=== PATIENT | female | born 1960 | race Caucasian/White ===

== ENCOUNTER → 2018-06-07 | Day surgery (SDC) | payer BC ==
[~2018-06-07] MED LIST: ASPIRIN81 MG; CLINDAMYCIN 600MG / 50ML 50 ML IV ONE; DEXAMETHASONE SOD PHOS INJ 4 MG/ML VIAL ONE; FENTANYL CITRATE/PF 100MCG/2 ML INJ ONE; LIDOCAINE HCL 2% LOCAL INJ 5 ML SDV VIAL INJ ONE; METOPROLOL; MIDAZOLAM HCL 2 MG/2 ML VIAL ONE; NORCO 10-325 T1 EACH; OMEPRAZOLE40 MG; ONDANSETRON HCL INJ 2 MG/ML VIAL ONE; PHENYLEPHRINE HCL 1% 10 MG/ML VIAL ONE; PROPOFOL IV EMULSION 10 MG/ML 20 ML VIAL ONE; SERAQUIL; SEVOFLURANE INHAL SOLN 250 ML PEN BTL ONE; TRUMEQ
[2018-06-07 10:40] VITALS: BP 137/94
--- NOTE | 2018-06-07 10:59 | Operative Report ---
DATE OF PROCEDURE: PREOPERATIVE DIAGNOSIS: Cubital tunnel syndrome, right arm. POSTOPERATIVE DIAGNOSIS: Cubital tunnel syndrome, right arm. OPERATION PERFORMED: Right ulnar nerve transposition. ANESTHESIA: General. HISTORY: The patient is a 57-year-old right-hand dominant female who presents with EMG-proven cubital tunnel syndrome. The risks, benefits, and alternatives to treatment were discussed with the patient and she is prepared to undergo the procedures as outlined. DESCRIPTION OF PROCEDURE: The patient was brought to the operating theater. After the induction of adequate general inhalation anesthesia, she was prepped and draped in a supine position. A time out was performed by the entire operating room team. The procedure was begun by marking out the medial epicondyle and marking out incisions that extended proximally and distally from the medial epicondyle for a distance of 5 cm. The right upper extremity was exsanguinated, and a tourniquet was inflated to a pressure of 250 mmHg. The procedure was begun by incising through the skin and subcutaneous tissues sharply. Bleeding was controlled using the bipolar cautery. The dissection continued into the subcutaneous plane, and branches of the medial antebrachial cutaneous nerve were identified and protected and preserved as best possible. The dissection continued directly onto the medial epicondyle. At this point, the skin and subcutaneous tissues were elevated off the medial epicondyle and flexor pronator muscles mass. Posteriorly the skin and subcutaneous tissues were elevated off the medial epicondyle down to the level of the olecranon. Proximal to the cubital tunnel the medial intramuscular septum was identified at its attachment to the medial epicondyle. Just posterior to the intramuscular septum the ulnar nerve was identified proximal to its entrance in the cubital tunnel. Using the ulnar nerve as a guide, the overlying tissues were incised, taking care to protect and preserve the ulnar nerve. The dissection continued distally through the cubital tunnel, and the overlying thickened tissues were incised, once again taking care to protect and preserve the ulnar nerve throughout its course. The dissection continued distally onto the flexor pronator muscle mass. The fascia overlying the ulnar nerve was divided sharply, and the muscle fibers were then gently teased apart. The dissection continued distally until both the 1st and 2nd muscular branches off the ulnar nerve were identified. At this point, a 1/4-inch Zuleima drain was placed around the nerve and used to elevate the nerve out of its bed. The posterior attachments were released and the nerve was transposed anteriorly and subcutaneously. In order to prevent a ehsan-site of compression, the intramuscular septum was transected at the medial epicondyle and removed for a distance of several cm proximally. A subcutaneous sling was fashioned by suturing the subcutaneous fascia to the tissue around the medial epicondyle using 3-0 Vicryl in an interrupted manner. Care was taken to ensure that the nerve was not compressed or kinked during this maneuver. The elbow was placed through a range of motion verifying the adequacy of the transposition. The wound was copiously irrigated and closed as follows: 3-0 Vicryl was used to close the deep dermis in a buried interrupted fashion, and 5-0 nylon was used in an interrupted horizontal mattress fashion to approximate the skin. A Marcaine field block was performed at the operative site. The tourniquet was deflated. All the fingers pinked up nicely. A sterile bulky conforming bandage was applied from axilla to wrist. This was held in place with loosely wrapped Sebas wraps. The patient tolerated the procedure well and was brought to the recovery room in satisfactory condition. She was discharged with a postoperative instruction sheet as well as a followup appointment. Job#: [id number] KARIN
== END | disposition home or self-care (01) ==
LOC: OR 06:52
PROVIDERS: ATTEND Plastic Surgery
DX: G56.21 Lesion of ulnar nerve, right upper limb (principal); M06.9 Rheumatoid arthritis, unspecified; M54.9 Dorsalgia, unspecified; R00.0 Tachycardia, unspecified; N18.9 Chronic kidney disease, unspecified; F17.210 Nicotine dependence, cigarettes, uncomplicated; Z86.19 Personal history of other infectious and parasitic diseases; Z88.0 Allergy status to penicillin; Z88.8 Allergy status to other drugs, medicaments and biological substances; Z01.810 Encounter for preprocedural cardiovascular examination; Z79.82 Long term (current) use of aspirin
CPT/HCPCS: 64718; 93005; J1100; J2001; J2250; J2370; J2405; J2704

== ENCOUNTER 2019-05-27 13:47 | Inpatient (IN) | payer BC ==
[~2019-05-27] VITALS: Ht 152.4 cm; Wt 45.4 kg
[~2019-05-27 13:47] MED LIST changes: -CLINDAMYCIN 600MG / 50ML 50 ML IV ONE; -DEXAMETHASONE SOD PHOS INJ 4 MG/ML VIAL ONE; -FENTANYL CITRATE/PF 100MCG/2 ML INJ ONE; -LIDOCAINE HCL 2% LOCAL INJ 5 ML SDV VIAL INJ ONE; -METOPROLOL; +METOPROLOL PO; -MIDAZOLAM HCL 2 MG/2 ML VIAL ONE; -NORCO 10-325 T1 EACH; +NORCO 10-325 T1 EACH PO; -OMEPRAZOLE40 MG; +OMEPRAZOLE40 MG PO; -ONDANSETRON HCL INJ 2 MG/ML VIAL ONE; -PHENYLEPHRINE HCL 1% 10 MG/ML VIAL ONE; -PROPOFOL IV EMULSION 10 MG/ML 20 ML VIAL ONE; -SERAQUIL; +SERAQUIL PO; -SEVOFLURANE INHAL SOLN 250 ML PEN BTL ONE; -TRUMEQ; +TRUMEQ PO
--- OUTSIDE RECORDS SUMMARY | 2019-05-27 13:50 | XMS REPORT ---
Author Author [facility] Address Unknown Phone Unavailable Care Team Providers Care Prep Person Name Role Phone Unavailable Unavailable Problems This patient has no known problems. Allergies, Adverse Reactions, Alerts This patient has no known allergies or adverse reactions. Medications This patient has no known medications. Encounters Start Date/Time End Date/Time Encounter Type Admission Type Attending Clinicians Care Facility Care Department Encounter ID 2019-01-10 09:20:00 2019-01-10 09:20:00 Outpatient [id number]
[2019-05-27] MEDS ORDERED: SODIUM CHLORIDE 0.9% 1000ML 1,000 ML IV SCH (14:30)
[2019-05-27 14:38] LABS: BASOPHILS # (AUTO) 0.1 (0.0-0.1); BASOPHILS % 0.7 % (0.0-1.0); EOSINOPHILS # (AUTO) 0.1 (0.0-0.4); EOSINOPHILS % 0.8 % (0.0-6.0); HEMATOCRIT 32.8 % (34.2-44.1); HEMOGLOBIN 10.6 g/dL (12.0-16.0); LYMPHOCYTES # (AUTO) 1.3 (1.0-3.2); LYMPHOCYTES % 17.6 % (18.0-39.1); MEAN CORPUSCULAR HEMOGLOBIN 36.9 pg (28-32); MEAN CORPUSCULAR HGB CONC 32.3 g/dL (31-35); MEAN CORPUSCULAR VOLUME 114.3 fL (81-99); MONOCYTES # (AUTO) 1.2 (0.2-0.8); MONOCYTES % 15.5 % (4.4-11.3); NEUTROPHILS # (AUTO) 4.4 (2.1-6.9); NEUTROPHILS % 59.4 % (38.7-80.0); PLATELET COUNT 292 x10e3/uL (140-360); RED BLOOD COUNT 2.87 x10e6/uL (3.6-5.1); RED CELL DISTRIBUTION WIDTH 12.4 % (11.7-14.4)
[2019-05-27 15:09] LABS: ALBUMIN 2.4 g/dL (3.5-5.0); ALBUMIN/GLOBULIN RATIO 0.6 (0.8-2.0); CALCIUM 10.1 mg/dL (8.4-10.2); CREATININE, SERUM 2.57 mg/dL (0.57-1.11)
[2019-05-27 15:15] LABS: BILIRUBIN,URINE MODERATE (NEGATIVE); CLARITY,URINE CLOUDY (CLEAR); COLOR,URINE BROWN (YELLOW); KETONES,URINE TRACE (NEGATIVE); LEUKOCYTE ESTERASE ,URINE NEGATIVE (NEGATIVE); NITRITE,URINE POSITIVE (NEGATIVE); PROTEIN,URINE DIPSTICK 1+ (NEGATIVE); URINE UROBILINOGEN 1 mg/dL (0.2 - 1)
[2019-05-27] MEDS ORDERED: CEFEPIME HCL 1 GM VIAL IV SCH (15:15)
[2019-05-27] MEDS ORDERED: SODIUM CHLORIDE 0.9% 1000ML 1,000 ML IV STA (15:15)
[2019-05-27 15:18] LABS: AMPHETAMINES SCREEN,URINE NEGATIVE (NEGATIVE); BENZODIAZEPINES SCREEN,URINE POSITIVE (NEGATIVE); PHENCYCLIDINE SCREEN,URINE NEGATIVE (NEGATIVE)
[2019-05-27 15:26] LABS: AMORPHOUS SEDIMENT,URINE FEW (FEW); BACTERIA,URINE MODERATE /HPF; RBC,URINE 0-5 /HPF (0-5)
[2019-05-27] MEDS: CEFEPIME 1GM/NS 0.9% 50 ML 50 ML IV SCH (15:45)
--- NOTE | 2019-05-27 16:33 | Diagnostic Imaging Report ---
EXAMINATION: CHEST SINGLE (NOT PORTABLE) INDICATION: Abdominal pain, pelvic pain COMPARISON: CT abdomen pelvis of earlier the same day. FINDINGS: LINES/TUBES:EKG leads overlie the chest. LUNGS:The lungs are moderately inflated. No focal consolidation or pulmonary edema. PLEURA:No pleural effusion or pneumothorax. MEDIASTINUM:The cardiomediastinal silhouette appears normal in size and shape. BONES/SOFT TISSUES:No acute osseous injury. ABDOMEN:No free air under the diaphragm. IMPRESSION: No focal pneumonia or pulmonary edema. Signed by: Zakiya Jacome MD on 05/27/2019 4:30 PM
--- NOTE | 2019-05-27 17:16 | Diagnostic Imaging Report ---
EXAM: CT Abdomen and Pelvis WITHOUT intravenous contrast INDICATION: Abdominal pain, hip pain, lactic acidosis COMPARISON: None. TECHNIQUE: Abdomen and pelvis were scanned utilizing a multidetector helical scanner from the lung base to the pubic symphysis without administration of IV contrast. Coronal and sagittal reformations were obtained. IV CONTRAST: None ORAL CONTRAST: Water COMPLICATIONS: None RADIATION DOSE: Total DLP: 490.9 mGy*cm Dose modulation, iterative reconstruction, and/or weight based adjustment of the mA/kV was utilized to reduce the radiation dose to as low as reasonably achievable. FINDINGS: LOWER THORAX: Mild dependent subsegmental atelectasis. Small hiatal hernia with fluid in the distal esophagus. HEPATOBILIARY: No focal liver lesion. No biliary ductal dilation. Unremarkable gallbladder. SPLEEN: No splenomegaly. PANCREAS: No focal masses or ductal dilatation. ADRENALS: No adrenal nodules. KIDNEYS/URETERS: 6 mm right midpole renal calculus. Mild right hydronephrosis. No hydroureter. 2 mm left midpole renal calculus and 6 mm left lower pole renal calculus. No left hydronephrosis or hydroureter. Mild cortical atrophy of both kidneys. PELVIC ORGANS/BLADDER: Unremarkable. PERITONEUM / RETROPERITONEUM: No free air or fluid. LYMPH NODES: No lymphadenopathy. VESSELS: Scattered atherosclerotic calcifications of the nonaneurysmal abdominal aorta and major branches. GI TRACT: Distended fluid-filled stomach. The cecum is distended to 7.1 cm and fluid-filled. The entire colon contains large amounts of fluid and stool. Colonic diverticulosis including right-sided diverticulosis with no CT evidence of diverticulitis. No abnormal bowel wall thickening. No definite obstruction. Normal appendix. BONES AND SOFT TISSUES: There is a likely subacute or chronic nonunited mildly impacted fracture of the left femoral neck. Old healed fractures of the right and left superior and inferior pubic rami. Postoperative findings of discectomy and posterior fusion at L4-5. No suspicious lytic or blastic lesions. IMPRESSION: Extensively fluid-filled bowel with cecal distention to 7.1 cm and large amounts of fluid and stool within the colon as well as fluid distention of the stomach. Diverticulosis including right-sided diverticulosis with no CT evidence of diverticulitis. Bilateral renal calculi up to 6 mm. Mild right hydronephrosis. No left hydronephrosis. Mild cortical atrophy of both kidneys suggesting chronicity. Subacute or chronic nonunited mildly impacted fracture of the left femoral neck. Old healed fractures of right and left superior and inferior pubic rami. Signed by: Zakiya Jacome MD on 05/27/2019 5:13 PM
[2019-05-27] MEDS ORDERED: MORPHINE SULFATE 2 MG/ML SYR 1ML IV PRN (18:15)
--- NOTE | 2019-05-27 19:00 | NUR ---
Report to GARCÍA Cervantes
--- NOTE | 2019-05-27 19:05 | NUR ---
Pt put on a bed espinoza to try to urinate.
--- NOTE | 2019-05-27 19:15 | NUR ---
Pt taken off of bedpan and at bedside and discussing plan of care with pt and .
--- NOTE | 2019-05-27 20:00 | NUR ---
Report to GARCÍA Claudio
--- NOTE | 2019-05-27 20:53 | Diagnostic Imaging Report ---
TECHNIQUE: Computed tomography imaging of the LEFT HIP was performed WITHOUT injected contrast. Dose modulation, iterative reconstruction, and/or weight based adjustment of the mA/kV was utilized to reduce the radiation dose to as low as reasonably achievable. HISTORY: Left hip pain, fracture COMPARISON: None available. FINDINGS: Subacute transverse fracture of the femoral neck with displacement. Early callus formation without osseous bridging. Mild degenerative arthrosis of the left hip. Remote healed pubic rami fractures. Refer to CT abdomen and pelvis report for the pelvic findings. IMPRESSION: Subacute displaced left femoral neck fracture with developing callus formation. Signed by: Dr. Fernando Gallo M.D. on 05/27/2019 8:50 PM
--- NOTE | 2019-05-27 20:58 | NUR ---
ORTHOPEDICS CONSULTATION Patient is a 58 yo community ambulator who presents to the ED for an inablity to ambulate after a fall 6 days ago with left hip pain. Denies numbness, paresthesias or loss of distal motor function. No pain in any other extremity. Denies any previous hip pain prior. PMdHx: HIV, Hep C Allergies: Penicillin, Ibuprofen SurgHx: 7 Spine Surgeries, most recently this summer by Dr. Dionicio Bonilla FamHx: Non-contributory Occ: Unemployed SocHx: Non-contdributory AVSS Left Leg: Shortened, Flexed, Externally Rotated Motor: + EHL, FHL, TA, G/S Sensation grossly intact Pulses + DP, Post tib Compartments soft Negative calf tenderness Left Hip CT demonstrates left displaced femoral neck fracture 58 yo F with Left displaced femoral neck fracture Plan for left hip hemiarthroplasty when medically cleared Plan for OR on 05/28/19 Follow up consent, labs NPO except meds after midnight IVF while NPO DVT Prophlaxis Discontinue DVT Chemoprophylaxis after midnight DO [facility]
[2019-05-27 21:33] LABS: BAND NEUTROPHILS % (MANUAL) 12 %; LYMPHOCYTES % (MANUAL) 18 % (19-48); METAMYELOCYTES % (MANUAL) 3 % (0-0); MONOCYTES % (MANUAL) 14 % (3.4-9.0); MYELOCYTES % (MANUAL) 2 % (0-0); NEUTROPHILS % (MANUAL) 48 % (40-74)
[2019-05-27] MEDS: MORPHINE SULFATE INJ 4 MG/ML INJ 1ML IV PRN (21:35)
[2019-05-27 21:36] LABS: HOWELL-JOLLY BODIES FEW
--- NOTE | 2019-05-27 21:36 | NUR ---
PT TRANSFERRED TO FLOOR VIA ST BY ACCEPTING NURSE ON TELE.
[2019-05-27 21:37] LABS: ANISOCYTOSIS SLIGHT; HYPOCHROMASIA SLIGHT; PLATELET ESTIMATE ADEQUATE; PLATELET MORPHOLOGY COMMENT NORMAL; RBC MORPHOLOGY COMMENT NORMAL
--- NOTE | 2019-05-27 21:44 | Diagnostic Imaging Report ---
Left hip with pelvis 3 - views HISTORY: Pain status post fall. COMPARISON: None. FINDINGS: Examination available for interpretation at 9:30 PM . There is a comminuted displaced impaction fracture of the left femoral neck with mild displacement of the distal fracture fragment. Deformity of the bilateral inferior pubic rami right greater than left may be related to prior traumatic injury. Partially visualized lower lumbar fusion hardware. Battery pack projected on the left hemipelvis laterally. Phleboliths within the pelvis. IMPRESSION: Displaced fracture of the left femoral neck. Signed by: Dr. Bacilio Horne M.D. on 05/27/2019 9:41 PM
--- NOTE | 2019-05-27 21:45 | NUR ---
TRANSPORTED PATIENT TO ROOM 292 VIA STRETCHER. TELEMETRY IN USE. PATIENT IS STILL TACHYCARDIC BUT ASYMPTOMATIC. PATIENT HAS HISTORY OF TACHYCARDIA. MD IS AWARE PER ER NURSE REPORT. PATIENT TRANSFERRED TO BED. O2 AT 2L/MIN. CALL LIGHT WITHIN REACHED.
[2019-05-27 22:00] VITALS: BP 104/63
[2019-05-27] MEDS: ONDANSETRON HCL INJ 2MG/ML 2ML 2 MG/ML VIAL IV PRN (22:10)
[2019-05-27 23:00] VITALS: BP 104/63
[2019-05-28] VITALS (16 sets, daily range): BP systolic 87–140; BP diastolic 58–88
--- NOTE | 2019-05-28 00:30 | NUR ---
UNABLE TO GET ENOUGH AMOUNT OF BLOOD SAMPLE FOR LABS. PATIENT IS A HARD STICK.
[2019-05-28] MEDS ORDERED: HYDROXYZINE HCL25 MG PO (02:02)
[2019-05-28] MEDS: MORPHINE SULFATE INJ 4 MG/ML INJ 1ML IV PRN ×2 (04:59→14:17)
[2019-05-28] MEDS: CEFEPIME 1GM/NS 0.9% 50 ML 50 ML IV SCH ×2 (04:59→18:28)
[2019-05-28] MEDS: ONDANSETRON HCL INJ 2MG/ML 2ML 2 MG/ML VIAL IV PRN ×4 (05:00→23:46)
[2019-05-28 05:54] LABS: BASOPHILS % 0.7 % (0.0-1.0); EOSINOPHILS # (AUTO) 0.1 (0.0-0.4); EOSINOPHILS % 1.3 % (0.0-6.0); HEMOGLOBIN 7.2 g/dL (12.0-16.0); LYMPHOCYTES # (AUTO) 0.5 (1.0-3.2); LYMPHOCYTES % 9.8 % (18.0-39.1); MEAN CORPUSCULAR HEMOGLOBIN 36.4 pg (28-32); MEAN CORPUSCULAR HGB CONC 33.5 g/dL (31-35); MEAN CORPUSCULAR VOLUME 108.6 fL (81-99); MONOCYTES # (AUTO) 0.8 (0.2-0.8); MONOCYTES % 14.2 % (4.4-11.3); NEUTROPHILS % 73.1 % (38.7-80.0); PLATELET COUNT 237 x10e3/uL (140-360); RED BLOOD COUNT 1.98 x10e6/uL (3.6-5.1); RED CELL DISTRIBUTION WIDTH 12.3 % (11.7-14.4)
[2019-05-28 06:00] LABS: HEMATOCRIT 21.5 % (34.2-44.1)
[2019-05-28 06:02] LABS: INR 1.14; PROTHROMBIN TIME 15.2 seconds (11.9-14.5)
[2019-05-28 06:07] LABS: ALBUMIN 1.9 g/dL (3.5-5.0); ALBUMIN/GLOBULIN RATIO 0.6 (0.8-2.0); ANION GAP 15.5 mmol/L (8-16); CALCIUM 8.2 mg/dL (8.4-10.2); CREATININE, SERUM 1.85 mg/dL (0.57-1.11); POTASSIUM 4.5 mmol/L (3.5-5.1)
--- NOTE | 2019-05-28 06:17 | NUR ---
PAGED DR. MORENO FOR ORDERS THRU THE MANAGER TRADE. WAITING FOR RESPONSE.
--- NOTE | 2019-05-28 06:48 | NUR ---
SPOKE WITH DR. PERALTA REGARDING CRITICAL LABS NEW ORDERS RECEIVED.
[2019-05-28 06:49] LABS: BAND NEUTROPHILS % (MANUAL) 22 %; EOSINOPHILS % (MANUAL) 4 % (0-7); LYMPHOCYTES % (MANUAL) 10 % (19-48); MONOCYTES % (MANUAL) 12 % (3.4-9.0); NEUTROPHILS % (MANUAL) 51 % (40-74); PLATELET ESTIMATE ADEQUATE
[2019-05-28 06:51] LABS: PLATELET MORPHOLOGY COMMENT FEW LARGE; RBC MORPHOLOGY COMMENT ABNORMAL
--- NOTE | 2019-05-28 06:58 | NUR ---
NEW ORDER FOR 1 UNIT OF PRBC TO BE GIVEN BEFORE SURGERY. DAY SHIFT NURSE MADE AWARE OF NEW ORDERS.
--- NOTE | 2019-05-28 07:14 | NUR ---
PATIENT REPOSITIONED IN BED BY 2 STAFFS. HEAD OF BED ELEVATED, TELEMETRY BOX IN PLACE. SWELLING TO LEFT HIP, ABDOMEN ROUND AND DISTENDED. BED IN LOWER POSITION, CALL LIGHT AT REACH, BED ALARM ACTIVATED.
[2019-05-28] MEDS: DEXTROSE 5%/0.9% SOD CHL 1,000 ML IV SCH ×2 (07:18→17:48)
--- NOTE | 2019-05-28 07:18 | NUR ---
DR. MORENO MADE AWARE OF DR. PERALTA ORDERS FOR BLOOD TRANSFUSION AND IV FLUIDS. NO NEW ORDERS.
--- NOTE | 2019-05-28 11:25 | NUR ---
MD IN TO SEE PATIENT. NOTIFIED OF PATIENT VOMITING BLACK EMESIS. NEW ORDERS RECEIVED. PRN ZOFRAN GIVEN ORDERED WILL CLOSELY MONITOR.
[2019-05-28] MEDS ORDERED: SODIUM CHLORIDE 0.9% 250ML 250 ML ONE (12:11)
--- NOTE | 2019-05-28 12:29 | Diagnostic Imaging Report ---
Exam: Chest radiograph Clinical History: Preoperative clearance Comparison: May 27, 2019 Findings: The cardiomediastinal silhouette and lungs are normal. The regional skeleton and soft tissue are unremarkable. There is no evidence of pleural effusion or pneumothorax. Impression: No radiographic evidence of acute cardiopulmonary disease. Signed by: Dr. Wilfredo Guevara MD on 05/28/2019 12:25 PM
--- NOTE | 2019-05-28 12:33 | NUR ---
BLOOD TRANSFUSION STARTED ORDERED. STAYED WITH THE PATIENT FOR THE FIRST 15 MINUTES, NO ADVERSE REACTION OBSERVED. WILL CLOSELY MONITOR.
[2019-05-28] MEDS ORDERED: METOPROLOL TARTRATE INJ 1 MG/ML VIAL IV PRN (15:00)
--- NOTE | 2019-05-28 15:00 | NUR ---
BLOOD TRANSFUSION COMPLETED, NO ADVERSE REACTION NOTED. LARGE BRUISE NOTED AT THE IV SITE. PATIENT DENIED PAIN ON PALPATION. REMAINS IN BED WITH HEAD OF BED ELEVATED. CALL LIGHT AT REACH.
[2019-05-28] MEDS ORDERED: PROTONIX 200MG/SODIUM CHLORIDE 0.9% 250 ML BAG IV SCH (15:15)
[2019-05-28] MEDS ORDERED: MINERAL OIL 132 ML BTL PR NR (15:15)
--- NOTE | 2019-05-28 15:25 | NUR ---
Visit made by the Spiritual Care Department Pastoral Visitor, Philomena Crowe. PV provided pastoral presence, hospitality, and supportive listening. Pastoral Visitor informed pt/family of the scope of Construction Project Engineer Services and availability. ERENDIRA KRAMER Java Developer Architect Spiritual Care Department O: [phone] Pager: [phone] ([phone] number calling from)
--- NOTE | 2019-05-28 16:15 | NUR ---
PATIENT TRANSFERRED TO ICU ORDERED. REPORT GIVEN TO RECEIVING NURSE. ALL PERSONAL ITEMS TAKEN WITH PATIENT.
--- NOTE | 2019-05-28 16:23 | NUR ---
RECEIVED PT, PT NOTED WITH LARGE HEMATOMA TO L SIDE NECK BY EJ LINE AREA IS SWOLLEN, TENDER AND PURPLE/RED INCREASING IN SIZE.WILL NOTIFY Addendum: 05/28/19 at 1629 by Nisreen Rubin RN ICE PACK PLACED OVER AREA, ASHLY PERSAUD
--- NOTE | 2019-05-28 16:40 | NUR ---
PAGED AT THIS TIME NOTIFIED OF NEW CONSULT
[2019-05-28] MEDS: PANTOPRAZOL 40MG/SOD CHL 0.9% 50 ML IV SCH ×2 (17:48→20:46)
--- NOTE | 2019-05-28 17:57 | Diagnostic Imaging Report ---
EXAMINATION: CT scan of the chest without contrast. TECHNIQUE: Helical CT images of the chest were performed from the lung apices to the level of the adrenal glands. No intravenous contrast was administered Coronal and sagittal reformatted images were obtained.Dose modulation, iterative reconstruction, and/or weight based adjustment of the mA/kV was utilized to reduce the radiation dose to as low as reasonably achievable. COMPARISON: None. CLINICAL HISTORY:Hematoma DISCUSSION: ABSENCE OF INTRAVENOUS CONTRAST DECREASES SENSITIVITY FOR DETECTION OF FOCAL LESIONS AND VASCULAR PATHOLOGY. LINES/TUBES: None. LUNGS AND AIRWAYS: The lungs are clear. No pulmonary nodules, masses or consolidation. Mild atelectasis. PLEURA: Small pleural effusions. HEART AND MEDIASTINUM: The thyroid gland is normal. The heart and pericardium are within normal limits. LYMPH NODES: There is no mediastinal, hilar or axillary lymphadenopathy. ABDOMEN: Limited contrast-enhanced views of the upper abdomen show no abnormality within the visualized liver, spleen, pancreas, or kidneys. The adrenal glands are normal. BONES AND SOFT TISSUES: Soft tissue stranding with foci of gas left supraclavicular and lower cervical region. IMPRESSION: Soft tissue stranding/hemorrhage and foci of gas in the left supraclavicular and lower cervical region. Signed by: Dr. Fernando Gallo M.D. on 05/28/2019 5:53 PM
--- NOTE | 2019-05-28 18:10 | NUR ---
ROUNDALONDRA NO SURGICAL INTERVENTION AT THIS TIME UNTIL PATIENT IS SURGICALLY CLEAR
--- NOTE | 2019-05-28 18:11 | NUR ---
ORTHOPEDIC PROGRESS NOTE Patient seen & examined, complaining of left hip pain. Patient in ICU due to blood in vomit and urine and also anemia. VS 97 HR 137 RR 22 BP 102/61 O2 93% Left Leg - Shortened Flexed Externally Rotated Motor: EHL, FHL, TA, G/S Sensation grossly intact Pulses + DP, Post tib Compartments soft Negative calf tenderness 58 yo F with left displaced femoral neck fracture Plan for left hip wolf when medically cleared Analgesics Bedrest DVT Prophylaxis DO [facility]
--- NOTE | 2019-05-28 19:01 | NUR ---
PAGED REGARDING HGB OF 6.5 WAITING CALL BACK
--- NOTE | 2019-05-28 19:20 | NUR ---
Dr. Park returned page, ordered to give 2 units PRBCs and recheck CBC in am.
[2019-05-28] MEDS ORDERED: SODIUM CHLORIDE 0.9% 250ML 250 ML IV NR (19:30)
[2019-05-28] MEDS: HYDROMORPHONE 1MG/1ML INJ IV PRN ×2 (20:08→23:45)
--- NOTE | 2019-05-28 21:58 | History and Physical ---
HISTORY OF PRESENT ILLNESS: The patient is a 58-year-old female with past medical history positive for kidney stone, chronic renal insufficiency, history of gastric ulcers; came to the hospital complaining of . Apparently, she fell on Monday night and sought an emergency medical attention until yesterday. She was found to have a hip fracture. She also was vomiting coffee-grounds emesis. She was found to have anemia. She received blood transfusion. The patient going to be transferred to the intensive care unit due to acute anemia. REVIEW OF SYSTEMS: CARDIOVASCULAR: No chest pain or palpitation. RESPIRATORY: No shortness of breath. No cough. GASTROINTESTINAL: Nausea and vomiting of coffee-ground. She complained of constipation. No blood in the stool. No black stools. She also complains of epigastric pain. GENITOURINARY: No frequency or dysuria. ALLERGIES: SHE IS ALLERGIC TO PENICILLIN, IBUPROFEN. SOCIAL HISTORY: She claims that she smokes. FAMILY HISTORY: Negative. PHYSICAL EXAMINATION: HEART: Showed regular rhythm. Normal S1, S2 sound. LUNGS: Clear bilaterally. ABDOMEN: Soft. Had epigastric tenderness. EXTREMITIES: Show no evidence of cyanosis, edema, or trauma. LABORATORY DATA: On the CBC; we have a white blood count of 7.48, hemoglobin 10.6, hematocrit 32.8, and platelet count 282,000. Prior hemoglobin was 7.2, so it came up from 7.2 to 10.6. On the BMP; we have a sodium 131, potassium 4.5, chloride 106, CO2 of 14, anion gap 15.5, BUN 97, creatinine 1.85, and GFR is 28, glucose is 138. Lactic acid was 69.2, now is normal at 8.5. Calcium 8.2, total bilirubin 0.4, AST 19, ALT 13, alkaline phosphatase 475, ammonia 47, creatine kinase is 411, CK-MB 4. Troponin 0.019. Total protein 5.1. Albumin 1.9, albumin and globulin ratio is 0.6, globulin is 3.2. Stool guaiac has been done. Also, urinalysis came back positive for opiates, evidence of a benzodiazepine. Urinalysis came back negative for leukocytes, negative for red blood cells. On the chest x-ray, there is no evidence of any acute cardiopulmonary disease. We have a CT of the hip, which shows acute displacement of left femur and hip fracture with developing callus formation. She also had a CT of the abdomen, which show extensive fluid-filled bowel with and large amount of fluid and stool within the colon as well as fluid distention of the stomach. Diverticulosis includes right-sided diverticulosis with no CT evidence of diverticulitis. Bilateral renal calculi up to 6 mm. Mild right hydronephrosis. No left hydronephrosis. Mild cortical atrophy mildly impacted fracture of the left femoral neck. All healed fractures on the right and left superior and inferior pubic rami. IMPRESSION: 1. Acute gastrointestinal bleed, secondary to most likely gastric ulcers . 2. Acute anemia, secondary to gastric bleed. 3. . 4. Fecal impaction. 5. Szqmy-mp-lqbzjfl renal failure, stage 3 to 4. 6. Constipation. 7. Bilateral kidney stones. 8. Right hydronephrosis. PLAN OF TREATMENT: The patient continue units of blood transfusion. Hemoglobin is up to 10.2. Continue cefepime 1 g IV twice a day. Continue D5 normal saline at 80 mL an hour. Continue Dilaudid 1 mg IV q.3 hours as needed, Zofran 4 mg IV q.4 hours as needed. Gastroenterology consult with Dr. Niko Moreno has been requested. Protonix 40 mg IV twice a day has been ordered. Also, the patient going to be transferred to intensive care unit. We are going to check H and H q.6 hours to keep eye on the hemoglobin and hematocrit daily for couple of days. We are going to hold on the surgery due to active GI bleed. Fleet Enema is going to be ordered also. Orthopedic surgical consult with Dr. Hernadez has been requested, we are going to hold on the surgery more stable condition. Dr. Niko Moreno will see her from the Gastroenterology point of view also. I talked with the family, the patient, and nurse. Labs have been reviewed. Consult report have been reviewed. Time spent around 45 to 50 minutes. The patient going to be transferred to intensive care unit. MD MERLYN Alvarado /[id number]
[2019-05-28] MEDS ORDERED: BISACODYL 10 MG SUPP PR ONE (23:30)
[2019-05-29] VITALS (21 sets, daily range): BP systolic 91–138; BP diastolic 47–78
[2019-05-29] MEDS: PANTOPRAZOL 40MG/SOD CHL 0.9% 50 ML IV SCH ×5 (01:30→21:28)
[2019-05-29] MEDS: CEFEPIME 1GM/NS 0.9% 50 ML 50 ML IV SCH ×2 (03:54→17:16)
[2019-05-29] MEDS: MORPHINE SULFATE INJ 4 MG/ML INJ 1ML IV PRN (03:55)
[2019-05-29] MEDS: ONDANSETRON HCL INJ 2MG/ML 2ML 2 MG/ML VIAL IV PRN ×5 (03:55→21:28)
[2019-05-29] MEDS: DEXTROSE 5%/0.9% SOD CHL 1,000 ML IV SCH ×2 (04:17→20:30)
[2019-05-29 05:01] LABS: BASOPHILS % 0.7 % (0.0-1.0); EOSINOPHILS # (AUTO) 0.1 (0.0-0.4); EOSINOPHILS % 2.2 % (0.0-6.0); HEMATOCRIT 23.9 % (34.2-44.1); HEMOGLOBIN 8.1 g/dL (12.0-16.0); LYMPHOCYTES # (AUTO) 0.5 (1.0-3.2); LYMPHOCYTES % 8.1 % (18.0-39.1); MEAN CORPUSCULAR HEMOGLOBIN 32.7 pg (28-32); MEAN CORPUSCULAR HGB CONC 33.9 g/dL (31-35); MEAN CORPUSCULAR VOLUME 96.4 fL (81-99); MONOCYTES # (AUTO) 0.7 (0.2-0.8); MONOCYTES % 12.5 % (4.4-11.3); NEUTROPHILS # (AUTO) 4.4 (2.1-6.9); NEUTROPHILS % 75.3 % (38.7-80.0); PLATELET COUNT 166 x10e3/uL (140-360); RED BLOOD COUNT 2.48 x10e6/uL (3.6-5.1); RED CELL DISTRIBUTION WIDTH 17.9 % (11.7-14.4)
[2019-05-29 05:45] LABS: FERRITIN 171.52 ng/mL (4.63-204.00)
[2019-05-29 06:19] LABS: FOLATE 6.2 ng/mL (7.0-15.4)
[2019-05-29] MEDS: HYDROMORPHONE 1MG/1ML INJ IV PRN ×4 (07:35→21:28)
[2019-05-29] MEDS ORDERED: ONDANSETRON HCL INJ 2MG/ML 2ML 2 MG/ML VIAL ONE (14:22)
--- NOTE | 2019-05-29 14:55 | NUR ---
ORTHOPEDIC PROGRESS NOTE Patient seen & examined complaining of pain in left hip. T 97.2 Hr 115 RR 18 BP 112/76 O2 99% RA Left Leg - shortened, flexed, externally rotated Motor: + EHL, FHL, TA, G/S Sensation grossly intact Pulse + DP, Post tib Compartments soft Negative calf tenderness H/H 8.1/23.9 58 yo F with left femoral neck fracture Plan for OR tomorrow if medically optimized Analgesics PRN DVT Prophylaxis Bedrest NPO except meds after midnight IVF while NPO DO [facility]
[2019-05-29] MEDS ORDERED: MIDAZOLAM HCL 2 MG/2 ML VIAL ONE (14:56)
--- NOTE | 2019-05-29 17:29 | Progress Note ---
DATE: Internal Medicine Progress Note SUBJECTIVE: The patient is doing better. She is status post EGD. There was no evidence of any active bleeding, but there was evidence of hiatal hernia, gastritis, esophagitis, and some duodenal ulcers also. The patient is complaining of nausea. OBJECTIVE: VITAL SIGNS: Blood pressure 94/50, heart rate 121 per minute, respiratory rate 12 per minute, and oxygen saturation 99%. HEART: Showed regular rhythm. Normal S1, S2 sound. LUNGS: Clear bilaterally. ABDOMEN: Soft, nontender. No distention. No visceromegaly. LABORATORY DATA: On the BMP; sodium 131, potassium 4.5, chloride 106, CO2 14, BUN 97, creatinine 1.85, glucose 138. On the CBC; white blood count 5.90, hemoglobin 8.1, hematocrit 23.9, platelet count of 163,000. PT 15.2, INR 1.14, PTT 39.0. AST 19, ALT 13, total bilirubin 0.4, alkaline phosphatase 475. FINAL IMPRESSION: 1. Gastric bleeding. 2. Arthritis. 3. Duodenal ulcer. 4. Hiatal hernia. 5. Esophagitis. 6. Left hip fracture. 7. Acute anemia secondary to gastric bleed. 8. Tmvmi-zh-acurdey renal failure, stage 3 to 4. 9. Bilateral kidney stones. 10. Right hydronephrosis. 11. Constipation. PLAN OF TREATMENT: 1. Continue cefepime 1 g IV twice a day. 2. Protonix drip. 3. D50 IV push. 4. D5 half-normal saline at 80 mL an hour. 5. Dilaudid 1 mg IV q.3 hours as needed. 6. Zofran 4 mg IV q.4 hours as needed. 7. Metoprolol 5 mg IV q.6 hours for tachycardia. We are going to repeat a BMP tomorrow, CBC tomorrow. We are going to consult Dr. Bates for acute renal failure. The patient is going to have a hip fracture repair tomorrow. MD RALPH Alvarado/TANA /[id number]
[2019-05-29] MEDS ORDERED: LIDOCAINE HCL 2% LOCAL INJ 5 ML SDV VIAL INJ ONE (18:15)
[2019-05-29] MEDS ORDERED: PROPOFOL IV EMULSION 10 MG/ML 50 ML VIAL ONE (18:15)
--- NOTE | 2019-05-29 20:20 | Operative Report ---
DATE OF PROCEDURE: 05/29/2019 SURGEON: Niko Moreno MD PROCEDURE PERFORMED: EGD with biopsies and esophageal brushings. INDICATIONS FOR EGD: Anemia, history of hematemesis. MEDICATIONS: The patient was done under MAC, please see anesthesiologist's note. PROCEDURE IN DETAIL: With the patient in the supine position, a flexible fiberoptic Olympus gastroscope was introduced into the esophagus under direct visualization without any difficulty. Mucosa overlying the esophagus was covered with black exudate throughout and it was brushed and brushings were sent for Pooja as well as cytology. The scope was then advanced with ease traversing a small hiatal hernia. Mucosa overlying the antrum and the body revealed some patchy erythema and [id number] edema and biopsies were obtained and sent to stain for H pylori. A large amount of dark liquid and possibly some solid debris was noted in the fundus of the stomach, which precluded visualization of that segment. The pylorus was of normal contour and shape, was intubated with ease and the scope was advanced all the way to the second portion of the duodenum. The scope was then withdrawn slowly. Mucosa overlying the proximal second portion appeared to be within normal limits. Two large ulcers were noted in the duodenal bulb with a heaped up margins, but without active bleeding or stigmata of recent hemorrhage. Biopsies were obtained. The scope was then withdrawn back into the stomach, it was subsequently withdrawn. The patient tolerated the procedure well. IMPRESSION: 1. Esophageal mucosa covered with black thick exudate, brushed to check for Pooja and for cytology. 2. Hiatal hernia. 3. Gastritis, biopsied. Biopsies sent to stain for H pylori. 4. Large duodenal ulcers, bulb without active bleeding or stigmata of recent hemorrhage. The patient ulcers had heaped up margins. Biopsies were obtained. PLAN: Follow up histology. Continue current therapy. Initiate full liquid diet. Niko Moreno MD [facility] /[id number] cc: MD Selvin Poole MD
[2019-05-30] VITALS (7 sets, daily range): BP systolic 123–158; BP diastolic 75–89
--- NOTE | 2019-05-30 00:06 | Consultation ---
DATE OF CONSULTATION: REASON FOR CONSULTATION: Acute kidney injury. HISTORY OF PRESENT ILLNESS: The patient is a 58-year-old female with past medical history of peptic ulcer disease, nephrolithiasis, HIV, and hepatitis C, being followed by Dr. Dao as an outpatient. Came to the hospital after a fall and found to have a left hip fracture. The patient also has been having vomiting coffee-grounds emesis. She was found to have anemia with hemoglobin of 6.5. She was transferred to ICU. She has been seen by GI and had an EGD done that showed nonbleeding esophageal ulcer. The patient had PRBC transfusion and hemoglobin today is 8.1. The patient was found to be in acute kidney injury with creatinine of 2.57. This morning, it came down to 1.85. The patient is currently on IV fluids. No vomiting today. Per patient, she was diagnosed with acute kidney injury 15 years ago and was on dialysis for three months. She does not follow up with any kidney doctor as an outpatient. Her HIV/hepatitis-C doctor keeps a track of her kidney function and her creatinine is usually at 1.0 to 1.03 per patient. PAST MEDICAL HISTORY: As above. PAST SURGICAL HISTORY: None. ALLERGIES: PENICILLIN AND IBUPROFEN. SOCIAL HISTORY: Positive for smoking. No alcohol or intravenous drug abuse. FAMILY HISTORY: No history of any kidney disease. REVIEW OF SYSTEMS: GENERAL: No fatigue, no fever, no chills. HEENT: No headache or blurry vision. NECK: No dysphagia. CARDIOVASCULAR: No chest pain, no PND, no orthopnea. RESPIRATORY: No shortness of breath or dyspnea on exertion. No cough, no hemoptysis. GI: Had vomiting. No abdominal pain. No hematemesis. No melena. MUSCULOSKELETAL: No ankle swelling, but complains of left hip pain. GENITOURINARY: No urinary urgency, frequency, or hesitancy. SKIN: No new rash. PHYSICAL EXAMINATION: VITAL SIGNS: Blood pressure 112/76, pulse of 115, temperature 97.2, respiratory rate of 18, and 99% on room air. GENERAL: The patient is awake and alert, not in apparent distress. HEENT: PERRLA. Extraocular muscles are intact. NECK: No JVD. HEART: S1 and S2. Tachycardic. LUNGS: Clear to auscultate bilaterally. No added sounds. ABDOMEN: Soft. Bowel sounds positive. EXTREMITIES: No cyanosis, clubbing, or edema. NEUROLOGIC: No focal deficit. MEDICATIONS: Dilaudid 1 mg q.3 hours, pantoprazole, Zofran, cefepime 1 g twice a day, metoprolol p.r.n., and morphine p.r.n. LABORATORY DATA: Sodium 131, potassium 4.5, chloride 106, CO2 of 14, BUN 97, creatinine 1.85, and glucose 138. White count 5.9, hemoglobin 8.1, and platelet count is 166. INR 1.14. Blood culture is negative. CT abdomen and pelvis showed cecal distention, diverticulosis, bilateral renal calculi and mild right hydronephrosis, mild cortical atrophy of both kidneys, suggestive of chronicity, subacute or chronic fracture of the left femoral neck. CT of the chest done today soft tissue stranding, hemorrhage and foci of gas in the left supraclavicular and lower cervical area. Chest x-ray, no radiographic evidence of acute cardiopulmonary process. CT of the hip, subacute displaced left femoral neck fracture with developing callus formation. ASSESSMENT AND PLAN: 1. Acute kidney injury, likely secondary to prerenal insufficiency from GI bleed/anemia and vomiting, improving. Repeat lab in the morning. Avoid all nephrotoxic medications. 2. Anemia, GI bleed, status post EGD and PRBC. Hemoglobin is stable. 3. Left hip fracture, surgery tomorrow. 4. Nephrolithiasis. No acute intervention at this point. The patient to follow up with Urology as an outpatient. 5. Hepatitis-C, HIV. She will follow up as an outpatient. Discussed with the at bedside. I want to thank Dr. Park for the consult. Deja Chao MD AFS/MODL /[id number]
[2019-05-30] MEDS: ONDANSETRON HCL INJ 2MG/ML 2ML 2 MG/ML VIAL IV PRN ×4 (01:00→19:04)
[2019-05-30] MEDS: HYDROMORPHONE 1MG/1ML INJ IV PRN ×5 (01:00→19:04)
[2019-05-30] MEDS: PANTOPRAZOL 40MG/SOD CHL 0.9% 50 ML IV SCH ×4 (02:12→19:04)
[2019-05-30] MEDS: CEFEPIME 1GM/NS 0.9% 50 ML 50 ML IV SCH ×2 (03:15→15:46)
[2019-05-30 05:32] LABS: BASOPHILS # (AUTO) 0.1 (0.0-0.1); BASOPHILS % 1.1 % (0.0-1.0); EOSINOPHILS # (AUTO) 0.1 (0.0-0.4); EOSINOPHILS % 1.2 % (0.0-6.0); HEMATOCRIT 24.3 % (34.2-44.1); HEMOGLOBIN 8.3 g/dL (12.0-16.0); LYMPHOCYTES # (AUTO) 0.5 (1.0-3.2); LYMPHOCYTES % 8.1 % (18.0-39.1); MEAN CORPUSCULAR HEMOGLOBIN 33.3 pg (28-32); MEAN CORPUSCULAR HGB CONC 34.2 g/dL (31-35); MEAN CORPUSCULAR VOLUME 97.6 fL (81-99); MONOCYTES # (AUTO) 1.1 (0.2-0.8); MONOCYTES % 17.1 % (4.4-11.3); NEUTROPHILS # (AUTO) 4.6 (2.1-6.9); NEUTROPHILS % 70.4 % (38.7-80.0); PLATELET COUNT 149 x10e3/uL (140-360); RED BLOOD COUNT 2.49 x10e6/uL (3.6-5.1); RED CELL DISTRIBUTION WIDTH 20.3 % (11.7-14.4)
[2019-05-30 05:44] LABS: INR 1.1; PROTHROMBIN TIME 14.7 seconds (11.9-14.5)
[2019-05-30 05:45] LABS: PARTIAL THROMBOPLASTIN TIME 39.2 seconds (23.8-35.5)
[2019-05-30 06:12] LABS: ANION GAP 12.4 mmol/L (8-16); CALCIUM 8.5 mg/dL (8.4-10.2); CREATININE, SERUM 1.05 mg/dL (0.57-1.11)
[2019-05-30 06:15] LABS: POTASSIUM 3.4 mmol/L (3.5-5.1)
[2019-05-30] MEDS: DEXTROSE 5%/0.9% SOD CHL 1,000 ML IV SCH ×2 (09:00→22:37)
[2019-05-30] MEDS ORDERED: TRANEXAMIC ACID 1,000 MG/10 ML ML ONE (09:26)
[2019-05-30] MEDS ORDERED: BACITRACIN 50,000 UNIT VIAL ONE (09:26)
[2019-05-30] MEDS ORDERED: VANCOMYCIN HCL 500 MG ONE (09:26)
[2019-05-30] MEDS ORDERED: POTASSIUM CHLORIDE 20MEQ/100ML 100 ML IV ONE ×2 (09:30→14:00)
--- NOTE | 2019-05-30 09:37 | NUR ---
PT STABLE. LEAVING UNIT FOR PROCEDURE
[2019-05-30] MEDS ORDERED: ROPIVACAINE 246.25 MG, EPINEPHRINE HCL 1:1000 1ML 0.5 MG, CLONIDINE HCL 0.08 MG, KETORO... INJ ONE ×5 (10:00)
[2019-05-30] MEDS ORDERED: CLINDAMYCIN PHOS 900MG/ 50ML 50 ML IV ONE (10:02)
--- NOTE | 2019-05-30 11:23 | Progress Note ---
DATE: Internal Medicine Progress Note SUBJECTIVE: The patient is going for surgery today. She is demanding pain medication around the clock. She already has her morphine recently. She is going for hip surgery today. PHYSICAL EXAMINATION: VITAL SIGNS: Blood pressure 140/79, temperature 99 degrees, heart rate 120 per minute, respiratory rate 18 per minute, and O2 saturation 98%. HEART: Show regular rhythm. Normal S1 and S2 sound. LUNGS: Clear bilaterally. ABDOMEN: Soft. LABORATORY DATA: On the BMP; sodium 140, potassium 3.4, chloride 116, CO2 of 15, BUN 35, creatinine 1.06, and glucose 122. On CBC; white blood count 6.56, hemoglobin 8.3, hematocrit 24.3, and platelet count 149,000. PT 14.7, INR 1.10, and PTT 39.2. AST 19, ALT 13, total bilirubin 0.4, and alkaline phosphatase 475. IMPRESSION: 1. Gastric bleed. 2. Acute renal failure, which is slowly resolving. 3. Left hip fracture. 4. Chronic pain syndrome. 5. Acute anemia secondary to upper gastrointestinal bleed. 6. Hypokalemia. PLAN OF TREATMENT: Continue with Protonix drip. Potassium is going to be replaced. We are going to recheck potassium and magnesium level. Continue metoprolol 5 mg IV every 6 hours as needed and morphine 4 mg IV every 4 hours as needed. She is going for hip surgery today and we are going to continue monitoring hemoglobin and hematocrit and potassium levels. MD RALPH Alvarado/TANA /[id number]
[2019-05-30] MEDS ORDERED: SUGAMMADEX SODIUM 200 MG/2 ML VIAL IV ONE (11:25)
--- NOTE | 2019-05-30 12:00 | NUR ---
discussed in rounds, pt is going for surgery today. will need physical therapy eval after to determine appropriate level of care
[2019-05-30] MEDS ORDERED: MEPERIDINE HCL INJ 25 MG/ML VIAL ONE (12:04)
[2019-05-30] MEDS ORDERED: MORPHINE SULFATE INJ 4 MG/ML INJ 1ML ONE (12:13)
[2019-05-30] MEDS: CLINDAMYCIN PHOS 900MG/ 50ML 50 ML IV SCH ×2 (14:32→22:54)
[2019-05-30] MEDS ORDERED: FENTANYL CITRATE/PF 100MCG/2 ML INJ ONE (15:00)
[2019-05-30] MEDS ORDERED: MIDAZOLAM HCL 2 MG/2 ML VIAL ONE (15:00)
[2019-05-30 16:20] LABS: BASOPHILS # (AUTO) 0.1 (0.0-0.1); EOSINOPHILS % 0.4 % (0.0-6.0); HEMATOCRIT 26.3 % (34.2-44.1); HEMOGLOBIN 8.7 g/dL (12.0-16.0); LYMPHOCYTES # (AUTO) 0.8 (1.0-3.2); LYMPHOCYTES % 10.5 % (18.0-39.1); MEAN CORPUSCULAR HEMOGLOBIN 33.6 pg (28-32); MEAN CORPUSCULAR HGB CONC 33.1 g/dL (31-35); MEAN CORPUSCULAR VOLUME 101.5 fL (81-99); MONOCYTES # (AUTO) 1.3 (0.2-0.8); MONOCYTES % 16.5 % (4.4-11.3); NEUTROPHILS # (AUTO) 5.3 (2.1-6.9); NEUTROPHILS % 69.3 % (38.7-80.0); PLATELET COUNT 135 x10e3/uL (140-360); RED BLOOD COUNT 2.59 x10e6/uL (3.6-5.1); RED CELL DISTRIBUTION WIDTH 21.3 % (11.7-14.4)
[2019-05-30 16:34] LABS: ANION GAP 11.7 mmol/L (8-16); CALCIUM 8.1 mg/dL (8.4-10.2); CREATININE, SERUM 1.03 mg/dL (0.57-1.11); POTASSIUM 3.7 mmol/L (3.5-5.1)
[2019-05-30] MEDS ORDERED: ROCURONIUM BROMIDE 10 MG/ML 5ML VIAL ONE (18:17)
[2019-05-30] MEDS ORDERED: ONDANSETRON HCL INJ 2MG/ML 2ML 2 MG/ML VIAL ONE (18:17)
[2019-05-30] MEDS ORDERED: PROPOFOL IV EMULSION 10 MG/ML 20 ML VIAL ONE (18:17)
[2019-05-30] MEDS ORDERED: SEVOFLURANE INHAL SOLN 250 ML PEN BTL ONE (18:17)
[2019-05-30] MEDS ORDERED: PHENYLEPHRINE HCL 1% 10 MG/ML VIAL ONE (18:17)
[2019-05-30] MEDS ORDERED: LIDOCAINE HCL 2% LOCAL INJ 5 ML SDV VIAL INJ ONE (18:17)
--- NOTE | 2019-05-30 19:08 | Diagnostic Imaging Report ---
Single frontal radiograph of the left hip HISTORY: Pain COMPARISON: None available. FINDINGS: Bones: No acute displaced fracture. Osseous alignment is within normal limits. Joints: Scattered degenerative change. Left hip replacement with associated postsurgical change. Soft tissues: The soft tissues appear unremarkable. IMPRESSION: Scattered degenerative change. Left hip replacement with associated postsurgical change. Signed by: Dr. Arley Jasso M.D. on 05/30/2019 7:05 PM
--- NOTE | 2019-05-30 20:24 | NUR ---
patient seen and assessed, patient is stable, pumps inspected and verified. safety and fall precautions maintained, patient is currently stable will continue to monitor.
--- NOTE | 2019-05-30 21:04 | NUR ---
OPERATIVE NOTE - ORTHOPEDICS PREOPERATIVE DIAGNOSES: Left Displaced Femoral Neck Fracture POSTOPERATIVE DIAGNOSES: Left Displaced Femoral Neck Fracture PROCEDURE: Left Hip Hemiarthroplasty. Xray interpretation SURGEON: Patricia Hernadez DO ANESTHESIA: General. EBL: 100cc ANESTHESIA: General COMPLICATIONS: None IMPLANTS: Franck Accollade II 127 deg Neck Angle Hip Stem Size 4, Neck Length 35 mm, Stem Length 105 mm, Taper V40 LFIT V40 Femoral Head OD 28 Offset +0 mm, UHR [place] Head Bipolar Components OD 44mm, ID 28mm PROCEDURE: The patient was bought to the operating room and placed under general anesthesia and Clindamycin antibiotics and TXA were provided. After induction of anesthesia, the patient was turned on the right side and secured in the hip table with all bony prominences well padded. The leg was prepped and draped in standard sterile fashion. A timeout was performed confirming patient and laterality. An incision was made, centered over the posterior portion of greater trochanter. Dissection was sharply carried down through the subcutaneous tissues with controlled hemostasis. The gluteus kirby and fascia bora was incised and split proximally and distally. The piriformis and external rotators were identified. These were removed from their insertions on the greater trochanter and tagged with stitches as a sleeve. A T-capsulotomy was performed for exposure to the fractured femoral neck and head. The distal portion of the capsule and external rotators were reflected to protect the sciatic nerve. A femoral neck cut was made above the lesser trochanter and the femoral neck and head were removed. The femoral head was measured to be a 44 mm. All bony remnants within the acetabulum and parts of the capsule were removed and focus was on preparation of the femur. The femur was then flexed and internally rotated. The extra trochanteric bone was removed, as was any leftover lateral soft tissue at the piriformis insertion. An intramedullary hole was drilled into the femur to define the canal. Reaming was performed until the appropriate size was reached. The broache s were then used to prepare the femur with the appropriate amount of version. Once the appropriate size broach was reached, it was used as a trial with head and neck placement. Hip [id number] was checked in all planes, including flexion-internal rotation, the position of sleep, and extension-external rotatio n. The hip was found to have excellent stability with the final chosen head-neck combination. Intraoperative x-rays were obtained to ensure adequate canal filling and leg lengths. Xray were interpreted and showed good alignment, length and size. Leg length measurements were taken and found to be within acceptable range, given the necessity for stability. The canal was thoroughly washed and a Franck Accolade II #4 size neck length 35mm, stem length 105mm V40 Taper with 127 degree degree stem was opened and impacted in the appropriate version. The UHR [place] Head Bipolar Component 44 mm 28 mm with the Styker LFit V40 Femoral Head with 28 mm and 0mm Offset was used. Range of motion and stability were once again checked and found to be excellent. Adequate hemostasis was obtained. Vigorous power irrigation was used to remove all debris from the joint prior to final reduction. Periarticular cocktail injection was placed around the soft tissue of the joint. The arthrotomy and rotators were closed using Ethibond through drill holes in the bone, recreating the posterior hip structural anatomy. The gluteus kirby and IT Band was repaired using Vicryl. The subcutaneous tissues were closed after further irrigation with 2-0 Vicryl and Monocryl sutures. An analgesic cocktail was injected into the area for pain control. The skin covered with steristrips and an Aquacel dressing. The patient was transferred to the recovery room in stable condition, having tolerated the procedure well.
--- NOTE | 2019-05-30 22:55 | NUR ---
patient iv changed to left hand wrist.
[2019-05-31] VITALS (7 sets, daily range): BP systolic 115–164; BP diastolic 68–95
[2019-05-31] MEDS ORDERED: LUBIPROSTONE 24 MCG CAP PO STA (00:10)
[2019-05-31] MEDS ORDERED: CYANOCOBALAMIN INJ 1,000 MCG/ML VIAL IM ONE (00:15)
[2019-05-31] MEDS ORDERED: FOLIC ACID 1 MG TAB PO ONE (00:15)
[2019-05-31] MEDS ORDERED: IRON SUCROSE 100 MG in SODIUM CHLORIDE 0.9% 100 ML 100 ML IV SCH ×2 (00:15→08:00)
[2019-05-31] MEDS: HYDROMORPHONE 1MG/1ML INJ IV PRN ×6 (01:08→22:08)
--- NOTE | 2019-05-31 01:44 | NUR ---
REPORT TAKEN FROM GARCÍA MENDEZ.
--- NOTE | 2019-05-31 01:46 | NUR ---
PATIENT WAS BROUGHT FROM ROOM #187.ORIENTED TO THE UNIT.ABDUCTION PILLOW IS IN PLACE .DRESSING TO LEFT HIP IS DRY.BED LOCKED AND IN LOWEST POSITION.PHONE AND CALL LIGHT WITHIN REACH.INSTRUCTED TO CALL FOR ASSISTANCE NEEDED.
--- NOTE | 2019-05-31 01:54 | NUR ---
patient transferred to room 102, report given to clark Mathews
[2019-05-31] MEDS ORDERED: BISACODYL 10 MG SUPP PR ONE ×2 (02:00→05:00)
[2019-05-31] MEDS: PANTOPRAZOL 40MG/SOD CHL 0.9% 50 ML IV SCH ×4 (02:13→11:30)
[2019-05-31] MEDS: ONDANSETRON HCL INJ 2MG/ML 2ML 2 MG/ML VIAL IV PRN ×5 (03:03→22:08)
[2019-05-31] MEDS: MORPHINE SULFATE INJ 4 MG/ML INJ 1ML IV PRN (03:04)
[2019-05-31] MEDS: CEFEPIME 1GM/NS 0.9% 50 ML 50 ML IV SCH (04:08)
[2019-05-31 05:59] LABS: BASOPHILS % 0.1 % (0.0-1.0); EOSINOPHILS # (AUTO) 0.1 (0.0-0.4); EOSINOPHILS % 0.6 % (0.0-6.0); HEMATOCRIT 23.6 % (34.2-44.1); HEMOGLOBIN 7.9 g/dL (12.0-16.0); LYMPHOCYTES # (AUTO) 0.7 (1.0-3.2); LYMPHOCYTES % 6.9 % (18.0-39.1); MEAN CORPUSCULAR HEMOGLOBIN 33.1 pg (28-32); MEAN CORPUSCULAR HGB CONC 33.5 g/dL (31-35); MEAN CORPUSCULAR VOLUME 98.7 fL (81-99); MONOCYTES # (AUTO) 1.5 (0.2-0.8); NEUTROPHILS # (AUTO) 7.4 (2.1-6.9); NEUTROPHILS % 71.4 % (38.7-80.0); PLATELET COUNT 168 x10e3/uL (140-360); RED BLOOD COUNT 2.39 x10e6/uL (3.6-5.1); RED CELL DISTRIBUTION WIDTH 20.8 % (11.7-14.4)
--- NOTE | 2019-05-31 06:00 | NUR ---
ADMINISTERED DULCOLAX SUPPOSITORY.IF BOWEL MOVEMENT OCCURED CALL .
[2019-05-31 06:14] LABS: ANION GAP 10.4 mmol/L (8-16); CREATININE, SERUM 0.96 mg/dL (0.57-1.11); MAGNESIUM 1.7 MG/DL (1.3-2.1); PHOSPHORUS 2.1 MG/DL (2.3-4.7); POTASSIUM 3.4 mmol/L (3.5-5.1)
[2019-05-31] MEDS: CLINDAMYCIN PHOS 900MG/ 50ML 50 ML IV SCH (06:24)
--- NOTE | 2019-05-31 07:00 | NUR ---
BED SIDE SHIFT REPORT GIVEN TO THE ONCOMING RN.STABLE CONDITION.
[2019-05-31] MEDS ORDERED: POTASSIUM CHLORIDE 20MEQ/100ML 100 ML IV ONE (08:30)
[2019-05-31] MEDS: METOPROLOL SUCCINATE 50 MG TAB XL PO SCH (09:00)
[2019-05-31] MEDS: LUBIPROSTONE 24 MCG CAP PO SCH ×2 (09:00→17:00)
[2019-05-31] MEDS: FOLIC ACID 1 MG TAB PO SCH (09:00)
[2019-05-31] MEDS ORDERED: CYANOCOBALAMIN INJ 1,000 MCG/ML VIAL IM SCH (09:00)
[2019-05-31] MEDS: DEXTROSE 5%/0.9% SOD CHL 1,000 ML IV SCH ×2 (10:00→22:30)
--- NOTE | 2019-05-31 11:29 | NUR ---
PT OOB WITH PHYSICAL THERAPY, NOW SITTING IN BS CHAIR
--- NOTE | 2019-05-31 12:45 | NUR ---
ORTHOPEDIC PROGRESS NOTE Patient seen & examined, pain control much improved. Patient sitting up by bedside VS 96.4 HR 123 RR 19 BP 115/73 O2 97% Left Hip - Dressing clean, dry and intact Motor: + EHL, FHL, TA, G/S SILT Pulses + DP, Post tib Compartments soft Negative calf tenderness 58 yo F s/p Left Hip Hemiarthroplasty POD #1 Analgesics DVT Prophylaxis PT -WBAT, Posterior hip precautions Follow up labs DO [facility]
--- NOTE | 2019-05-31 13:42 | NUR ---
WITH STANDBY ASSIST, PT BACK TO BED, CALL LIGHT WITHIN REACH
[2019-05-31] MEDS: PANTOPRAZOLE SOD 40 MG TABEC PO SCH (17:00)
[2019-05-31] MEDS: FLUCONAZOLE 100 MG TAB PO SCH (17:00)
--- NOTE | 2019-05-31 18:17 | Progress Note ---
DATE: Internal Medicine Progress Note SUBJECTIVE: The patient is doing well. She is already walking. She had a hip surgery. She was found to have esophageal ulcer. She was found to have Pooja in esophagus. The patient is going to be evaluated by Dr. Lewis for a possible transfer to the rehab center. PHYSICAL EXAMINATION: HEART: Showed regular rhythm. Normal S1, S2 sound. LUNGS: Clear bilaterally. ABDOMEN: Soft. EXTREMITIES: Show no evidence of cyanosis or hematoma except for the incision site on the left hip. LABORATORY STUDIES: On the BMP; sodium 138, potassium 3.4, chloride 116, CO2 15, BUN 20, creatinine 0.96, glucose 121. On the CBC; white blood count 10.4, hemoglobin 7.9, hematocrit 23.6, platelet count 168,000. PT 14.7, PTT 39.2, INR 1.10. AST is 19, ALT 13, total bilirubin 0.4, alkaline phosphatase 475. FINAL IMPRESSION: 1. Episode of upper GI bleed secondary to duodenal ulcers and gastritis. 2. Acute renal failure, which is resolved. 3. Left hip fracture status post hemiarthroplasty. 4. Hypokalemia. 5. Acute anemia. 6. Hepatitis C. 7. HIV. 8. Constipation. 9. Acute anemia. PLAN OF TREATMENT: We are going to discontinue cefepime because there is no evidence of any infection. Continue Protonix 40 mg p.o. twice a day. Continue IV Protonix. She received IV iron. Continue metoprolol 50 mg daily. We are going to discontinue morphine, put her on [place] 7.5/325 q.4 hours as needed for pain. Discontinue Dilaudid. Continue Amitiza 24 mcg p.o. twice a day, Diflucan 100 mg daily, vitamin B12 1000 mcg daily, metoprolol 5 mg IV q.6 hours, folic acid 1 mg daily. PT, OT evaluation. We will consult Dr. Wallace for Infectious Diseases. MD RALPH Alvarado/TANA /[id number]
--- NOTE | 2019-05-31 18:45 | NUR ---
Patient will need a RW for home use. Addendum: 05/31/19 at 1852 by Robert Cardenas PT Amended: Links added.
--- NOTE | 2019-05-31 19:21 | NUR ---
WALKING ROUNDS PERFORMED, RECEIVED PT LAYING SEMI FOWLERS IN BED, AAOX3, RR EVEN AND NON-LABORED, ON ROOM AIR. NO S/SX OF DISTRESS NOTED. DRESSING TO (L) HIP NOTED TO BE CDI. PUREWICK AND DIAPER IN PLACE. LEFT PT LAYING SEMI FOWLERS IN BED, BED IN LOW LOCKED POSITION, SIDE RAILS UPX2, CALL LIGHT AND PHONE WITHIN REACH.
--- NOTE | 2019-05-31 21:30 | NUR ---
APPLIED NEW PUREWICK AND DIAPER, CLEANSED ELIAS AREA.
[2019-05-31] MEDS: IRON SUCROSE 100 MG in SODIUM CHLORIDE 0.9% 100 ML 100 ML IV SCH (22:08)
[2019-06-01] VITALS (8 sets, daily range): BP systolic 114–157; BP diastolic 59–84
--- NOTE | 2019-06-01 00:08 | Consultation ---
DATE OF CONSULTATION: 05/31/2019 I would like to thank Dr. Park for asking me to see Ms. Low in consultation. REASON FOR CONSULTATION: 1. Status post fall with left hip fracture, status post left hemiarthroplasty. 2. Recent GI bleed. 3. History of hep C. 4. Acute kidney injury. HISTORY: A 58-year-old female, who had fallen about a week prior to admission. At that time, she was having a sore hip, but was still ambulatory, however, she had fallen last Monday again. In the meantime, she had developed nausea, vomiting, and hemoptysis. Eventually, was able to come to the hospital after a lot of coercion. Found to have acute GI bleed and during the course of workup, was found to have a left femur fracture. Underwent hemiarthroplasty yesterday, is doing much better now, and being asked to evaluate for rehab needs. She is also being seen by Dr. Chao for SILVINA. PAST MEDICAL HISTORY: HIV positive, hepatitis C. ALLERGIES: PENICILLIN, IBUPROFEN. PAST SURGICAL HISTORY: Seven spine surgeries. FAMILY HISTORY: Noncontributory. HABITS: Smokes. SOCIAL HISTORY: Lives in a one-story home and takes 4 steps to get into the house, was ambulatory, get around without any assistive device. FAMILY HISTORY: Negative. LABORATORY DATA: White cell count of 10.4, hemoglobin 7.9, hematocrit 23.6, platelets of 168. Sodium is 138, potassium 3.4, BUN 20, creatinine 0.96. IMAGING: She had a hip x-ray from yesterday, which showed scattered degenerative changes, left hip replacement with associated postsurgical changes. She had a chest CT, which showed soft tissue stranding hemorrhage and foci of gas in the left supraclavicular and lower cervical region. Chest x-ray showed no radiographic evidence of acute cardiopulmonary disease. PHYSICAL EXAMINATION: GENERAL: The patient was seen along with family in room. Awake and alert. No apparent distress at this time. EYES: Gaze is conjugate. ORAL: Tongue is midline. NECK: Supple, but she has a lot of bruising around the left lower neck and upper shoulder area. HEART: Regular. LUNGS: Diminished breath sounds. ABDOMEN: Nontender, nondistended. EXTREMITIES: She has the leg immobilizer on. Leg abduction splint between the legs. SENSORY MESSINA: Denies any numbness or tingling in the hands, feet, or face. Manual muscle testing. She demonstrates pretty much 4+/5 strength in upper extremities bilaterally. EXTREMITIES: Lower extremities, she has really good movement and strength to the right leg and left leg. Did not really move her hip or knee much, secondary to recent surgery, but knee extension in extended position was actually pretty good at 4/5 strength. Ankle dorsiflexion and plantar flexion is 4+/5 strength in the right leg, again 4+ to 5/5 strength throughout. IMPRESSION: 1. Left hip fracture, secondary to fall with hemiarthroplasty. 2. Recent GI bleed. 3. Anemia, secondary to gastric bleed. 4. Acute kidney injury. 5. The patient with bruising at the left upper chest area due to bleeding and line placement. PLAN: I spoke with the patient at length as well as family. She wants to see how she does. If she does well, she wants to go home. If she is not able to do well, then she will consider inpatient rehab. We will follow along with you. Thank you once again for allowing me to participate in the care of this pleasant, but unfortunate patient. Damon Lewis DO RPL/MODL /[id number]
[2019-06-01] MEDS ORDERED: SOD PHOSPHATE/SOD BIPHOSPHATE ENEMA 132 ML BTL PR ONE (00:15)
[2019-06-01] MEDS: ONDANSETRON HCL INJ 2MG/ML 2ML 2 MG/ML VIAL IV PRN ×5 (02:12→18:30)
[2019-06-01] MEDS: HYDROMORPHONE 1MG/1ML INJ IV PRN ×6 (02:12→22:35)
--- NOTE | 2019-06-01 02:25 | NUR ---
PT ASSISTED TO BSC S/P ENEMA ADMIN. PT ABLE TO HAVE SMALL BM. PT ASSISTED TO AMBULATE IN ROOM 30 FT BEFORE RETURNING TO BED. POSITIONED PT IN BED, FOR COMFORT, APPLIED ABDUCTOR PILLOW BETWEEN LEGS AND LEFT PT LAYING SEMI FOWLERS IN BED, BED IN LOW LOCKED POSITION, SIDE RAILS UPX2, CALL LIGHT AND PHONE WITHIN REACH. APPLIED NEW PUREWICK AND DIAPER.
[2019-06-01] MEDS: DEXTROSE 5%/0.9% SOD CHL 1,000 ML IV SCH ×3 (04:03→20:30)
[2019-06-01 06:27] LABS: ANION GAP 13.2 mmol/L (8-16); BLOOD UREA NITROGEN 14 mg/dL (7-26); BUN/CREATININE RATIO 16 (6-25); CALCIUM 8.3 mg/dL (8.4-10.2); CARBON DIOXIDE 16 mmol/L (22-29); CHLORIDE 112 mmol/L (98-107); CREATININE, SERUM 0.85 mg/dL (0.57-1.11); EST GLOMERULAR FILTRATION RATE > 60 ML/MIN (60-); GLUCOSE 107 mg/dL (74-118); POTASSIUM 3.2 mmol/L (3.5-5.1); SODIUM 138 mmol/L (136-145)
[2019-06-01] MEDS: PANTOPRAZOLE SOD 40 MG TABEC PO SCH ×2 (09:00→17:17)
--- NOTE | 2019-06-01 09:39 | NUR ---
WITH STANDBY ASSIST AND USE OF WALKER, PT AMBULATED TO BR, PT REPORTS "GAS BUT NO POOP", PT REPORTS BM LAST NIGHT, STANDBY ASSIST BACK TO BED, CALL LIGHT WITHIN REACH
[2019-06-01] MEDS: METOPROLOL SUCCINATE 50 MG TAB XL PO SCH (10:00)
[2019-06-01] MEDS: FOLIC ACID 1 MG TAB PO SCH (10:00)
[2019-06-01] MEDS: POLYETHYLENE GLYCOL 3350 17 GM PACK PO SCH ×3 (10:00→20:23)
[2019-06-01] MEDS: LUBIPROSTONE 24 MCG CAP PO SCH ×2 (10:00→17:00)
[2019-06-01] MEDS: FLUCONAZOLE 100 MG TAB PO SCH (10:00)
--- NOTE | 2019-06-01 11:14 | NUR ---
PT REPORTS PASSING FLATUS, ATE SMALL AMOUNT OF BREAKFAST, PT TOLERATING JELLO BROUGHT IN BY , WITH STANDBY ASSIST AND USE OF WALKER, PT OOB TO BR WITH PCT AT SIDE,
--- NOTE | 2019-06-01 11:34 | NUR ---
MD Emily PETE INTO SEE PT, DISCUSSED POC
--- NOTE | 2019-06-01 13:46 | NUR ---
ORTHOPEDICS PROGRESS NOTE Patient seen & examined with at bedside. Feeling sore today however attributes it to increased activity. VS T 97.2, HR 120, RR 20, BP 123/59 O2 98% Left Hip - Dressing clean, dry and intact Motor: + EHL, FHL, TA, G/S Sensation grossly intact to light touch Pulse + DP, Post tib Compartments soft Negative calf tenderness 58 yo F s/p Left Hip Hemiarthroplasty POD#2 Analgesics DVT Prophylaxis PT WBAT Posterior hip precautions Follow up labs DO [facility]
[2019-06-01 14:11] LABS: HEMATOCRIT 26.2 % (34.2-44.1); HEMOGLOBIN 8.8 g/dL (12.0-16.0)
--- NOTE | 2019-06-01 14:18 | NUR ---
Nutrition Screen Note RD Recommendation for Physician: Advance diet as tolerated to a regular diet Plan of Care: RD following, monitoring for tolerance and adequacy Nutrition reason for involvement: LOS Primary Diagnose(s):Hip fracture, sepsis PMH: gastric ulcer Ht:60 in Wt:100lb BMI:19.5 kg/m2 IBW:100lb +/-10% RD Assessment: (06/01/2019) Chart reviewed. Labs and meds reviewed. Initial encounter with patient. Pt is somewhat confused. Pt is wanting to know when she can get solid food. Pt with C/O nausea, limited acceptance of full liquid diet and she denies any difficulty chewing or swallowing at this time. Pt is able to feed herself. Pt has no known food allergies. Current Diet: Full liquid Malnutrition Evaluation (06/01/2019) The patient does not meet criteria for a specified degree of malnutrition at this time. Will re-evaluate at follow-up as appropriate. Diet Education Needs Assessment: Diet education not indicated. Nutrition Care Level: Low Signed: Jose Payne RD, LD, [facility]
[2019-06-01] MEDS ORDERED: POTASSIUM CHLORIDE 20MEQ/100ML 100 ML IV ONE ×2 (17:00→20:00)
--- NOTE | 2019-06-01 17:17 | NUR ---
PT TOOK OWN MEDICATION TRIUMEQ PER MD ORDER
--- NOTE | 2019-06-01 17:58 | NUR ---
PT COMPLAINING OF IV BURNING, WARM CLOTH APPLIED, OFFERED TO DILUTE EVEN MORE, PT STATES WILL "RIP OUT IV", THEN PT STATES "NO I WON'T I NEED MY DILAUDID AT 627PM", PT EDUCATED THAT MD ORDERED PO IF PT CANNOT TOLERATE IV , PT VERBALIZED UNDERSTANDING
[2019-06-01] MEDS ORDERED: POTASSIUM CHLORIDE 20 MEQ TAB CR PO ONE ×3 (18:08→20:00)
--- NOTE | 2019-06-01 18:15 | NUR ---
OFFERED PO POTASSIUM, PT REFUSING AT THIS TIME, STATES SHE IS NAUSEATED BECAUSE SHE TOOK HER HOME MEDICATION TRUIMEQ, NEEDS NAUSEA AND PAIN MEDICATION, EDUCATED WILL BRING IN WHEN TIME, PT VERBALIZED UNDERSTANDING, PT STATES SHE NOW "WANTS IV POTASSIUM NOT THE ONE BY MOUTH"
[2019-06-01] MEDS ORDERED: SODIUM CHLORIDE 0.9% 250ML 250 ML ONE (18:25)
--- NOTE | 2019-06-01 18:30 | NUR ---
MEDICATED PER MD ORDER FOR PAIN FOR ABD/HIP PAIN, IV POTASSIUM RESTARTED PER PT REQUEST TO TAKE IV NOT PO , NO CHANGE IN CONDITION
[2019-06-01] MEDS: [UNRECOGNIZED DRUG - OTHER] PO SCH (18:46)
--- NOTE | 2019-06-01 19:10 | NUR ---
WALKING ROUNDS PERFORMED, RECEIVED PT LAYING SEMI FOWLERS IN BED, AAOX3, RR EVEN AND NON-LABORED, ON ROOM AIR. PT REPORTS PAIN TO (L) HIP. AQUACEL DRESSING IN PLACE. LEFT PT LAYING SEMI FOWLERS IN BED, BED IN LOW LOCKED POSITION, SIDE RAILS UPX2, CALL LIGHT AND PHONE WITHIN REACH.
[2019-06-01] MEDS: CYANOCOBALAMIN INJ 1,000 MCG/ML VIAL IM SCH (20:23)
[2019-06-01] MEDS: IRON SUCROSE 100 MG in SODIUM CHLORIDE 0.9% 100 ML 100 ML IV SCH (20:30)
[2019-06-02] VITALS (8 sets, daily range): BP systolic 109–135; BP diastolic 67–84
[2019-06-02] MEDS: HYDROMORPHONE 1MG/1ML INJ IV PRN ×5 (02:35→20:06)
[2019-06-02 06:19] LABS: ANION GAP 11.2 mmol/L (8-16); BLOOD UREA NITROGEN 14 mg/dL (7-26); BUN/CREATININE RATIO 18 (6-25); CALCIUM 8.1 mg/dL (8.4-10.2); CARBON DIOXIDE 16 mmol/L (22-29); CHLORIDE 110 mmol/L (98-107); CREATININE, SERUM 0.79 mg/dL (0.57-1.11); EST GLOMERULAR FILTRATION RATE > 60 ML/MIN (60-); GLUCOSE 124 mg/dL (74-118); POTASSIUM 3.2 mmol/L (3.5-5.1); SODIUM 134 mmol/L (136-145)
[2019-06-02] MEDS: ONDANSETRON HCL INJ 2MG/ML 2ML 2 MG/ML VIAL IV PRN ×4 (06:40→20:06)
[2019-06-02] MEDS: PANTOPRAZOLE SOD 40 MG TABEC PO SCH ×2 (09:00→17:00)
[2019-06-02] MEDS: POLYETHYLENE GLYCOL 3350 17 GM PACK PO SCH ×4 (09:00→20:06)
[2019-06-02] MEDS: FOLIC ACID 1 MG TAB PO SCH (10:00)
[2019-06-02] MEDS: METOPROLOL SUCCINATE 50 MG TAB XL PO SCH (10:00)
[2019-06-02] MEDS: FLUCONAZOLE 100 MG TAB PO SCH (10:00)
[2019-06-02] MEDS: LUBIPROSTONE 24 MCG CAP PO SCH ×2 (10:00→17:00)
[2019-06-02] MEDS: POTASSIUM CHLORIDE 20 MEQ TAB CR PO SCH (10:40)
--- NOTE | 2019-06-02 11:13 | NUR ---
MD MORENO INTO SEE PT, DISCUSSED POC,
--- NOTE | 2019-06-02 11:29 | NUR ---
ORTHOPEDICS PROGRESS NOTE Patient seen & examined resting in bed. Pain well controlled. No acute events overnight. T 98.2, HR 111, RR 20, BP 132/77 O2 100% Left hip - dressing clean, dry and intact Motor: + EHL, FHL, TA, G/S SILT Pulses + DP, Post tib Compartments soft Negative calf tenderness H/H 10// - 8.8/26.2 58 yo F s/p Left hip hemiarthroplasty POD #3 Analgesics DVT Prophylaxis PT - WBAT, Posterior hip precautions Patient orthopedically stable for discharge. Follow up in office in 2 weeks Plan for dressing change to new aquacel prior to discharge. DO [facility]
[2019-06-02 11:51] LABS: HEMATOCRIT 23.9 % (34.2-44.1)
[2019-06-02 12:00] LABS: HEMOGLOBIN 7.9 g/dL (12.0-16.0)
[2019-06-02] MEDS: DEXTROSE 5%/0.9% SOD CHL 1,000 ML IV SCH (12:00)
--- NOTE | 2019-06-02 14:00 | NUR ---
WITH STANDBY ASSIST AND USE OF WALKER, PT AMBULATED TO BR, BM NOTED, NOW SITTING IN BS CHAIR, CALL LIGHT WITHIN REACH, AT SIDE
--- NOTE | 2019-06-02 14:55 | NUR ---
PHYSICAL THERAPIST WORKING WITH PT
--- NOTE | 2019-06-02 19:05 | NUR ---
WALKING ROUNDS PERFORMED, RECEIVED PT LAYING SEMI FOWLERS IN BED, AAOX3, RR EVEN AND NON-LABORED, ON ROOM AIR. PT REPORTS PAIN TO (L) HIP BUT IS FEELING MUCH BETTER. DRESSING TO (L) HIP NOTED TO BE CDI. LEFT PT LAYING SEMI FOWLERS IN BED, BED IN LOW LOCKED POSITION, SIDE RAILS UPX2, CALL LIGHT AND PHONE WITHIN REACH.
[2019-06-02] MEDS: [UNRECOGNIZED DRUG - OTHER] PO SCH (19:11)
[2019-06-02] MEDS: IRON SUCROSE 100 MG in SODIUM CHLORIDE 0.9% 100 ML 100 ML IV SCH (20:06)
[2019-06-02] MEDS: CYANOCOBALAMIN INJ 1,000 MCG/ML VIAL IM SCH (20:06)
[2019-06-03] VITALS (8 sets, daily range): BP systolic 112–139; BP diastolic 63–81
[2019-06-03] MEDS ORDERED: BISACODYL 10 MG SUPP PR ONE (00:15)
[2019-06-03] MEDS: ONDANSETRON HCL INJ 2MG/ML 2ML 2 MG/ML VIAL IV PRN ×4 (00:15→15:44)
[2019-06-03] MEDS: HYDROMORPHONE 1MG/1ML INJ IV PRN ×4 (00:15→15:44)
[2019-06-03] MEDS: HYDROCODONE/APAP 7.5MG-325MG 1 EA TAB PO PRN ×3 (01:28→19:47)
--- NOTE | 2019-06-03 05:00 | NUR ---
IV TO (R) WRIST NOTED TO BE OCCLUDED. IV DISCONTINUED, PRESSURE AND DRESSING APPLIED. NEW IV STARTED TO (R) FA 20G. BLOOD RETURN NOTED AND FLUSHES WITHOUT DIFFICULTY.
[2019-06-03 05:56] LABS: ANION GAP 11.1 mmol/L (8-16); BLOOD UREA NITROGEN 13 mg/dL (7-26); BUN/CREATININE RATIO 17 (6-25); CALCIUM 7.8 mg/dL (8.4-10.2); CARBON DIOXIDE 18 mmol/L (22-29); CHLORIDE 108 mmol/L (98-107); CREATININE, SERUM 0.75 mg/dL (0.57-1.11); EST GLOMERULAR FILTRATION RATE > 60 ML/MIN (60-); GLUCOSE 103 mg/dL (74-118); POTASSIUM 3.1 mmol/L (3.5-5.1); SODIUM 134 mmol/L (136-145)
[2019-06-03 06:05] LABS: BASOPHILS % 0.4 % (0.0-1.0); EOSINOPHILS # (AUTO) 0.1 (0.0-0.4); EOSINOPHILS % 0.8 % (0.0-6.0); HEMOGLOBIN 7.3 g/dL (12.0-16.0); LYMPHOCYTES # (AUTO) 1.4 (1.0-3.2); LYMPHOCYTES % 13.7 % (18.0-39.1); MEAN CORPUSCULAR HGB CONC 33.3 g/dL (31-35); MEAN CORPUSCULAR VOLUME 99.1 fL (81-99); MONOCYTES # (AUTO) 1.2 (0.2-0.8); MONOCYTES % 11.9 % (4.4-11.3); NEUTROPHILS # (AUTO) 6.8 (2.1-6.9); NEUTROPHILS % 68.8 % (38.7-80.0); PLATELET COUNT 263 x10e3/uL (140-360); RED BLOOD COUNT 2.21 x10e6/uL (3.6-5.1); RED CELL DISTRIBUTION WIDTH 19.8 % (11.7-14.4)
[2019-06-03 06:24] LABS: HEMATOCRIT 21.9 % (34.2-44.1)
--- NOTE | 2019-06-03 07:00 | NUR ---
RECEIVED PATIENT ASLEEP IN BED NO S/S OF DISTRESS. BED LOW, WHEELS LOCKED, SIDE RAILS X2. CALL LIGHT IN REACH WILL CONTINUE TO MONITOR PATIENT.
[2019-06-03] MEDS: FOLIC ACID 1 MG TAB PO SCH (08:00)
[2019-06-03] MEDS: LUBIPROSTONE 24 MCG CAP PO SCH ×2 (08:00→16:17)
[2019-06-03] MEDS: FLUCONAZOLE 100 MG TAB PO SCH (08:00)
[2019-06-03] MEDS: PANTOPRAZOLE SOD 40 MG TABEC PO SCH ×2 (08:00→16:36)
[2019-06-03] MEDS: POLYETHYLENE GLYCOL 3350 17 GM PACK PO SCH ×3 (08:01→20:28)
[2019-06-03] MEDS: POTASSIUM CHLORIDE 20 MEQ TAB CR PO SCH (08:01)
[2019-06-03] MEDS: METOPROLOL SUCCINATE 50 MG TAB XL PO SCH (08:01)
--- NOTE | 2019-06-03 08:08 | Consultation ---
DATE OF CONSULTATION: 06/01/2019 REASON FOR CONSULTATION: HIV. HISTORY OF PRESENT ILLNESS: Thank you for asking me to see this patient. This patient, who is a 58-year-old, who has history of HIV for more than 19 years. She has a history of hepatitis C. She was treated for both. She has been followed by Dr. Karma Dao and she is telling me she takes Triumeq, and her viral load is undetectable. The patient comes to this hospital on May 27, 2019. She has history of kidney stone, chronic kidney disease, renal insufficiency, gastric ulcer disease, comes in with not feeling well. Apparently, she fell on Monday, but she is not on emergency room till the day of admission. The patient was admitted, she was found to have anemic. She also had vomited coffee ground emesis and she was diagnosed with GI bleed. She was also diagnosed with a fracture of the hip. The patient was admitted. She has been n.p.o. till today. The patient is doing slowly better, today is the first day, when she started to eat; and I am asked to see her in terms of the HIV medication. The patient, who is currently lying in bed, has no complaints. Family is at the bedside. PAST MEDICAL HISTORY: As mentioned above, renal stone, peptic ulcer disease, hepatitis C, and HIV. PAST SURGICAL HISTORY: As above. SOCIAL HISTORY: There is no smoking, drug abuse, or alcohol abuse. FAMILY HISTORY: Otherwise, unremarkable. The patient was admitted. She has been seen by Ortho. She has been seen by Renal. She has been seen by GI and rehab. Her condition since admission seems to be stable. PAST SURGICAL HISTORY: As above. ALLERGIES: PENICILLIN. SOCIAL HISTORY: There is no drug abuse or alcohol abuse, but she does smoke. LABORATORY DATA: White count of 10, hemoglobin 7.9. Her sodium 138, potassium 3.2, creatinine 0.85. Her cultures from esophageal brushing showed Pooja albicans. MEDICATIONS: She is currently on Dilaudid, Zofran, and Diflucan with no problems. REVIEW OF SYSTEMS: Otherwise, HEENT: Negative. PULMONARY: Negative. CARDIAC: Negative. GI: Negative. : Negative. Overall, she is improving. PHYSICAL EXAMINATION: GENERAL: He is currently alert, oriented, does not seem to be in acute distress. VITAL SIGNS: Stable, currently afebrile. HEENT: She is not icteric. NECK: Supple. CHEST: Clear. HEART: S1, S2. No murmur. ABDOMEN: Soft. Bowel sounds present. No tenderness. No hepatosplenomegaly. EXTREMITIES: No edema. IMPRESSION: 1. Human immunodeficiency virus. Clinically, seems to be doing better now. She can try to continue home medication. Discussed with the patient and family. Triumeq one p.o. daily, which she does take in the evening, she does have it with her. I told her it is okay to take her medication. 2. Peptic ulcer disease, seem to be stable. 3. Fractured hip, status post surgery. 4. Debility. 5. Acute kidney injury, seems to have been to be better. 6. History of . 7. History of neuropathy. We will follow with you. Discussed with the patient. MD CAMERON Shipley/MODJuan /[id number]
[2019-06-03] MEDS ORDERED: POTASSIUM CHLORIDE 20 MEQ TAB CR PO SCH (09:30)
[2019-06-03] MEDS ORDERED: POTASSIUM PHOSPHATE 20 MM in SODIUM CHLORIDE 0.9% 250ML 250 ML IV ONE (10:00)
--- NOTE | 2019-06-03 10:34 | NUR ---
CM MET WITH PT REGARDING ACUTE REHAB PT STATES SHE WANTS TO GO HOME WITH HOME HEALTH CARE AMBULATING 185 FEET WITH PT WITH NO LOSS OF BALANCE NOTIFIED DR PERALTA OF PT'S REFUSAL FOR ACUTE REHAB AND REQUEST TO GO HOME WITH HOME HEALTH
--- NOTE | 2019-06-03 10:59 | NUR ---
PATIENT A/O X3, EVEN RESPIRATIONS ON RA. LUNG SOUNDS LEAR TO AUSCULTATION. BOWEL SOUNDS PRESENT X4. PUREWICK AND DIAPER IN PLACE. RIGHT FA 20 GAUGE IV WITH D5NS @ 80 CC/HR. GENERALIZED PAIN 8/10. PRN PAIN MEDICATION GIVEN THIS AM. CARYN HOSE BILATERALLY. LEFT HIP DRESSING CLEAN, DRY, AND INTACT. CALL LIGHT IN REACH WILL CONTINUE TO MONITOR PATIENT.
--- NOTE | 2019-06-03 12:04 | Progress Note ---
DATE: Internal Medicine Progress Note The patient want to go home. She is status post hip fracture repair, but the potassium and magnesium, and hemoglobin are low. We are going to replace the potassium, replace the magnesium and recheck the hemoglobin to make sure hematocrit is more than 7.0, so she does not require blood transfusion. Otherwise, if it is less than 7.0, she will require a blood transfusion. The patient understands the reason we are keeping her one more day. The patient refuses inpatient rehab. She wants to go home with home health. PHYSICAL EXAMINATION: VITAL SIGNS: Blood pressure 112/65, temperature 97.9, heart rate 110 per minute, respiratory rate 16 per minute, oxygen saturation 99%. HEART: Regular rhythm. Normal S1, S2 sound. LUNGS: Clear bilaterally. ABDOMEN: Soft. EXTREMITIES: Show no evidence of cyanosis or hematoma. LABORATORY DATA: On the BMP; sodium 134, potassium 3.1, chloride 108, CO2 18, BUN 13, creatinine 0.75, and glucose 103. On the CBC, white count 9.91, hemoglobin 7.3, hematocrit 21.9, and platelet count 263,000. PT 14.7, INR 1.10, and PTT 39.2. AST 19, ALT 13, total bilirubin 0.4, alkaline phosphatase 475. FINAL IMPRESSION: 1. Upper gastrointestinal bleed, which has resolved. 2. Acute anemia secondary to upper gastrointestinal bleed. 3. Left hip fracture, status post repair. 4. Hypokalemia. 5. Hypophosphatemia. 6. Hypertension. 7. Esophageal candidiasis. 8. Physical condition. PLAN OF TREATMENT: 1. Potassium and phosphate will be replaced. 2. We are going to recheck the hemoglobin tomorrow to make sure it is not any lower. 3. Continue Zofran 4 mg IV q.4 hours as needed. 4. Folic acid 1 mg daily. 5. Dilaudid 1 mg IV q.4 hours as needed. 6. Potassium chloride 40 mEq daily pain. 7. Metoprolol 5 mg IV q.6 hours as needed for tachycardia. 8. Fluconazole 100 mg daily. 9. Vitamin B12 1000 mcg daily. 10. Metoprolol 50 mg daily. 11. [place] 1 tablet q.4 hours as needed for moderate pain. 12. Continue with MiraLAX 34 g three times a day. 13. Amitiza 24 mcg twice a day. 14. Protonix 40 mg twice a day. 15. Tentative discharge tomorrow. MD RALPH Alvarado/MODL /[id number]
--- NOTE | 2019-06-03 15:30 | NUR ---
RIGHT FA IV LEAKING REMOVED IV. CATHETER TIP INTACT AND PRESSURE DRESSING APPLIED.
--- NOTE | 2019-06-03 16:00 | NUR ---
NEW IV RIGHT EJ 20 GAUGE.
--- NOTE | 2019-06-03 16:47 | NUR ---
WHEN GOING INTO PATIENTS ROOM NOTICED RIGHT EJ WAS OUT OF VEIN. NO BLEEDING. REMOVED EJ CATHETER, CATHETER TIP INTACT AND PRESSURE DRESSING APPLIED. PAGED DR PERALTA REGARDING DIFFICULTY MAINTAINING IV ACCESS.
--- NOTE | 2019-06-03 19:00 | NUR ---
BED SIDE SHIFT REPORT TAKEN FROM MORNING RN.STABLE CONDITION.
--- NOTE | 2019-06-03 19:08 | NUR ---
ORDERS FOR RW AND 3 IN 1 CHOICE LETTER SIGNED FOR [facility] WITH [facility] DELIVERED RW AND 3 IN 1 TO PT'S ROOM ORDERS FOR HOME HEALTH CARE CHOICE LETTER FOR [facility] [place] SIGNED [phone] FAX [phone] CLINICALS FAXED WITH SIGNED PHYSICIANS ORDER REQUESTED AND CONFIRMATION SECURED PT GIVEN COPY OF BOTH CHOICE LETTERS PT CONTINUES TO REFUSE ACUTE REHAB REQUESTING TO GO HOME WITH AND LIVE IN AUTOMATIC HEMMER
--- NOTE | 2019-06-03 19:43 | NUR ---
Assessment done.no resp.distress.L.hip pain voiced 03/30.no iv access.waiting for picc line insertion.dressing to left hip is dry.bed alarm on.bed locked and in lowest position.phone and call light within reach.instructed to call for assistance as needed.
[2019-06-03] MEDS: [UNRECOGNIZED DRUG - OTHER] PO SCH (21:00)
--- NOTE | 2019-06-03 21:00 | NUR ---
NO IV ACCESS.SO IRON SUCROSE NOT ADMINISTERED ON TIME. WAITING FOR PICC LINE PLACEMENT.
[2019-06-03] MEDS: CYANOCOBALAMIN INJ 1,000 MCG/ML VIAL IM SCH (21:46)
--- NOTE | 2019-06-03 23:22 | NUR ---
CLEARED FOR PICC LINE PLACE MENT.
[2019-06-04 00:07] VITALS: BP 125/63
--- NOTE | 2019-06-04 00:23 | Diagnostic Imaging Report ---
EXAMINATION: CHEST XRAY LINE PLACEMENT INDICATION: ^PICC LINE PLACEMENT ^[id number] ^[id number] COMPARISON: 05/28/2019 FINDINGS: AP view TUBES and LINES: Right PICC in place with tip projecting over the proximal right atrium. Unchanged position of the spine stimulator lead. LUNGS: Lungs are well inflated. There is no evidence of pneumonia or pulmonary edema. PLEURA: No pleural effusion or pneumothorax. HEART AND MEDIASTINUM: The cardiomediastinal silhouette is unremarkable. BONES AND SOFT TISSUES: No acute osseous lesion. Soft tissues are unremarkable. UPPER ABDOMEN: No free air under the diaphragm. IMPRESSION: No acute thoracic abnormality. Signed by: Dr. Ronald Alvarez MD on 06/04/2019 12:19 AM
--- NOTE | 2019-06-04 00:46 | NUR ---
PICC in proper position per radiologist report by Dr Alvarez. PICC is ok to use
[2019-06-04] MEDS: ONDANSETRON HCL INJ 2MG/ML 2ML 2 MG/ML VIAL IV PRN ×4 (00:58→13:39)
--- NOTE | 2019-06-04 00:58 | Diagnostic Imaging Report ---
EXAMINATION: CHEST XRAY LINE PLACEMENT INDICATION: ^PICC LINE PLACED ^[id number] ^[id number] COMPARISON: Same day at 2333 hours FINDINGS: See impression. IMPRESSION: Slight retraction of right PICC with tip now projecting over inferior SVC. Otherwise, unchanged. No visible pneumothorax. Signed by: Dr. Ronald Alvarez MD on 06/04/2019 12:55 AM
[2019-06-04] MEDS: HYDROMORPHONE 1MG/1ML INJ IV PRN ×4 (00:59→13:39)
[2019-06-04] MEDS: IRON SUCROSE 100 MG in SODIUM CHLORIDE 0.9% 100 ML 100 ML IV SCH (01:23)
[2019-06-04 04:00] VITALS: BP 119/63
[2019-06-04 05:46] LABS: BASOPHILS % 0.2 % (0.0-1.0); EOSINOPHILS # (AUTO) 0.1 (0.0-0.4); EOSINOPHILS % 0.7 % (0.0-6.0); HEMOGLOBIN 7.2 g/dL (12.0-16.0); LYMPHOCYTES # (AUTO) 1.6 (1.0-3.2); LYMPHOCYTES % 18.4 % (18.0-39.1); MEAN CORPUSCULAR HEMOGLOBIN 32.7 pg (28-32); MEAN CORPUSCULAR HGB CONC 32.7 g/dL (31-35); MONOCYTES # (AUTO) 1.1 (0.2-0.8); NEUTROPHILS # (AUTO) 5.6 (2.1-6.9); PLATELET COUNT 307 x10e3/uL (140-360); RED CELL DISTRIBUTION WIDTH 19.8 % (11.7-14.4)
[2019-06-04 06:03] LABS: ANION GAP 10.9 mmol/L (8-16); BLOOD UREA NITROGEN 13 mg/dL (7-26); BUN/CREATININE RATIO 16 (6-25); CALCIUM 8.3 mg/dL (8.4-10.2); CARBON DIOXIDE 19 mmol/L (22-29); CHLORIDE 108 mmol/L (98-107); CREATININE, SERUM 0.81 mg/dL (0.57-1.11); EST GLOMERULAR FILTRATION RATE > 60 ML/MIN (60-); GLUCOSE 106 mg/dL (74-118); POTASSIUM 3.9 mmol/L (3.5-5.1); SODIUM 134 mmol/L (136-145)
--- NOTE | 2019-06-04 06:53 | NUR ---
Bedside shift report given to the oncoming Rn.stable condition.
--- NOTE | 2019-06-04 07:00 | NUR ---
RECEIVED PATIENT AWAKE RESTING IN BED NO S/S OF DISTRESS. BED LOW, WHEELS LOCKED, SIDE RAILS X2. CALL LIGHT IN REACH WILL CONTINUE TO MONITOR PATIENT.
[2019-06-04 07:49] VITALS: BP 141/85
[2019-06-04] MEDS: POTASSIUM CHLORIDE 20 MEQ TAB CR PO SCH (08:16)
[2019-06-04] MEDS: FOLIC ACID 1 MG TAB PO SCH (08:16)
[2019-06-04] MEDS: FLUCONAZOLE 100 MG TAB PO SCH (08:16)
[2019-06-04] MEDS: METOPROLOL SUCCINATE 50 MG TAB XL PO SCH (08:16)
[2019-06-04] MEDS: LUBIPROSTONE 24 MCG CAP PO SCH ×2 (08:16→15:46)
[2019-06-04] MEDS: PANTOPRAZOLE SOD 40 MG TABEC PO SCH ×2 (08:16→16:41)
[2019-06-04] MEDS: POLYETHYLENE GLYCOL 3350 17 GM PACK PO SCH ×2 (08:16→14:04)
[2019-06-04 08:17] VITALS: BP 141/85
--- NOTE | 2019-06-04 09:56 | NUR ---
PATIENT A/O X3, EVEN RESPIRATIONS ON RA. LUNG SOUNDS LEAR TO AUSCULTATION. BOWEL SOUNDS PRESENT X4. PUREWICK AND DIAPER IN PLACE. RIGHT UA PICC LINE IN PLACE. LEFT HIP PAIN 8/10. PRN PAIN MEDICATION GIVEN THIS AM. LEFT HIP DRESSING CLEAN, DRY, AND INTACT. CALL LIGHT IN REACH WILL CONTINUE TO MONITOR PATIENT.
[2019-06-04 11:44] VITALS: BP 120/73
[2019-06-04 16:09] VITALS: BP 127/77
[2019-06-04] MEDS ORDERED: FOLIC ACID PO (17:55)
[2019-06-04] MEDS ORDERED: METOPROLOL TART50 MG PO (17:56)
[2019-06-04] MEDS ORDERED: AMITIZA24 MCG PO (17:56)
[2019-06-04] MEDS ORDERED: FOSAMAX70 MG PO (17:59)
[2019-06-04] MEDS ORDERED: POTASSIUM CITR10 MEQ PO (17:59)
[2019-06-04] MEDS ORDERED: DIFLUCAN100 MG PO (18:00)
[2019-06-04] MEDS ORDERED: VITAMIN B (18:00)
[2019-06-04] MEDS ORDERED: [UNRECOGNIZED DRUG - CODE] (18:01)
[2019-06-04] MEDS ORDERED: VITAMIN B-12 IM (18:02)
[2019-06-04] MEDS: HYDROCODONE/APAP 7.5MG-325MG 1 EA TAB PO PRN (18:22)
--- NOTE | 2019-06-04 18:30 | NUR ---
REMOVED PATIENTS PICC LINE. CATHETER TIP INTACT ON REMOVAL AND PRESSURE DRESSING APPLIED.
--- NOTE | 2019-06-04 18:56 | NUR ---
PATIENT DISCHARGED FROM FACILITY. PATIENT GATHERED ALL PERSONAL BELONGINGS, DISCHARGE INSTRUCTIONS AND FOLLOW UP INFORMATION. PATIENT LEFT UNIT IN WHEELCHAIR AND WENT HOME VIA PRIVATE AUTO. NO SIGNS OF DISTRESS WHEN LEAVING FACILITY.
--- NOTE | 2019-06-05 05:24 | Discharge Summary ---
HISTORY: The patient is a 58-year-old female with past medical history positive for chronic pain syndrome. The patient has history of chronic renal insufficiency, hypertension. Also, came to the hospital because she was having black stools, coughing up coffee-grounds emesis. She had an EGD done by Dr. Niko Moreno. She received blood transfusions also due to severe anemia due to gastric bleed. She was found to have evidence of duodenal ulcers. She was found to have also hip fracture repair. She received several units of blood transfusion due to the upper GI bleed. She was found to have Pooja in esophagitis, hiatal hernias, duodenal ulcers, and gastritis also. The patient's potassium was replaced because the potassium was low, potassium back to normal. PHYSICAL EXAMINATION: HEART: Showed regular rhythm. Normal S1 and S2 sound. LUNGS: Clear bilaterally. ABDOMEN: Soft. VITAL SIGNS: Blood pressure 127/77, temperature 36.9, heart rate 107 per minute, respiratory rate 18 per minute, oxygen saturation 100%. LABORATORY DATA: On the BMP; sodium 134, potassium 3.9, chloride 108, CO2 of 19, BUN 13, creatinine 0.81, glucose 106. On the CBC; white count 8.62, hemoglobin 7.2, hematocrit 32.0, and platelet count 307,000. PT 14.7, INR 1.10, PTT 39.2. AST 19, ALT 13, total bilirubin 0.4, alkaline phosphatase 475. FINAL IMPRESSION: 1. Upper gastrointestinal bleed secondary to gastritis and duodenal ulcers. 2. Acute anemia secondary to duodenal ulcers. 3. Acute renal failure, resolved. 4. Possible type 1 renal tubular acidosis. 5. Hypokalemia secondary most likely to type 1 renal tubular acidosis. 6. Status post hip fracture repair. 7. . 8. Vitamin B12 deficiency. 9. Chronic pain syndrome. 10. Narcotic-induced constipation. PLAN OF TREATMENT: She is going to be discharged on iron supplement as she gets at home, metoprolol 50 mg daily, vitamin B12 of 1000 mcg daily, fluconazole 100 mg daily for esophageal candidiasis. Continue Amitiza 24 mcg p.o. twice a day, Protonix 40 mg twice a day, folic acid 1 mg daily, potassium citrate 20 mEq daily. Follow with me and Dr. Bates in a week. MD RALPH Alvarado/TANA /[id number]
== END 2019-06-04 18:56 | disposition home or self-care (01) | DRG 469 ==
LOC: ER 13:47 → ERHOLD 18:09 → MED/SURG3 21:38 → ICU 05-28 16:35 → IMCU 05-29 19:54 → MED/SURG 05-31 02:04
PROVIDERS: ADMIT Internal Medicine; ATTEND Internal Medicine
PROC: 30233N1 Transfusion of Nonautologous Red Blood Cells into Peripheral Vein, Percutaneous Approach (ICD-10-PCS; 2019-05-28)
PROC: 0DB68ZX Excision of Stomach, Via Natural or Artificial Opening Endoscopic, Diagnostic (ICD-10-PCS; 2019-05-29)
PROC: 0DD58ZX Extraction of Esophagus, Via Natural or Artificial Opening Endoscopic, Diagnostic (ICD-10-PCS; 2019-05-29)
PROC: 0DB98ZX Excision of Duodenum, Via Natural or Artificial Opening Endoscopic, Diagnostic (ICD-10-PCS; principal; 2019-05-29 13:32)
PROC: 0SRS01A Replacement of Left Hip Joint, Femoral Surface with Metal Synthetic Substitute, Uncemented, Open Approach (ICD-10-PCS; 2019-05-30)
DX: S72.142A Displaced intertrochanteric fracture of left femur, initial encounter for closed fracture (principal); K25.0 Acute gastric ulcer with hemorrhage; K26.4 Chronic or unspecified duodenal ulcer with hemorrhage; D62 Acute posthemorrhagic anemia; N17.9 Acute kidney failure, unspecified; N18.4 Chronic kidney disease, stage 4 (severe); N13.2 Hydronephrosis with renal and ureteral calculous obstruction; B20 Human immunodeficiency virus [HIV] disease; Z68.1 Body mass index [BMI] 19.9 or less, adult; B37.81 Candidal esophagitis; K56.41 Fecal impaction; K46.9 Unspecified abdominal hernia without obstruction or gangrene; K20.9 Esophagitis, unspecified; Z88.6 Allergy status to analgesic agent; Z88.0 Allergy status to penicillin; F17.210 Nicotine dependence, cigarettes, uncomplicated; Z87.442 Personal history of urinary calculi; Z86.19 Personal history of other infectious and parasitic diseases; R63.6 Underweight; K44.9 Diaphragmatic hernia without obstruction or gangrene; K29.70 Gastritis, unspecified, without bleeding; G89.4 Chronic pain syndrome; N25.89 Other disorders resulting from impaired renal tubular function; E53.8 Deficiency of other specified B group vitamins; E87.6 Hypokalemia; S20.212A Contusion of left front wall of thorax, initial encounter; E83.39 Other disorders of phosphorus metabolism; R53.81 Other malaise; E83.42 Hypomagnesemia; K59.03 Drug induced constipation; T40.2X5A Adverse effect of other opioids, initial encounter
CPT/HCPCS: 36415; 43235; 43239; 71045; 71250; 74176; 74470; 80048; 80053; 80307; 81001; 82140; 82271; 82550; 82553; 82607; 82728; 82746; 83540; 83605; 83735; 84100; 84466; 84484; 85014; 85018; 85025; 85045; 85610; 85730; 86850; 86900; 86920; 87040; 87106; 87205; 88104; 88112; 88305; 88312; 93005; 96361; 97139; 99284; J0171; J0692; J1170; J1756; J1885; J2001; J2175; J2250; J2270; J2370; J2405; J2795; J3010; J3370; J3420; J3480; J7030; J7042; J7050; P9016

== ENCOUNTER → 2019-07-12 | Day surgery (SDC) | payer BC ==
[~2019-07-12] MED LIST changes: +AMITIZA24 MCG PO; +DIFLUCAN100 MG PO; +DONNATAL/LIDOCAINE/MAALOX 30 ML SUSP PO ONE; +FENTANYL CITRATE/PF 100MCG/2 ML INJ ONE; +FOLIC ACID PO; +FOSAMAX70 MG PO; +GLUCAGON FOR INJ 1 MG VIAL ONE; +HYDROXYZINE HCL25 MG PO; +LORAZEPAM2 MG/1 M1 PO; +METOPROLOL TART50 MG PO; +MIDAZOLAM HCL 2 MG/2 ML VIAL ONE; +ONDANSETRON HCL INJ 2MG/ML 2ML 2 MG/ML VIAL ONE; +PANTOPRAZOLE SO40 MG PO; +POTASSIUM CITR10 MEQ PO; +PROPOFOL IV EMULSION 10 MG/ML 50 ML VIAL ONE; +TRIUMEQ 600-501 EACH PO; +VITAMIN B; +VITAMIN B-12 IM; +VITAMIN D400 UNIT PO; +[UNRECOGNIZED DRUG - CODE]
[2019-07-12 07:32] LABS: BASOPHILS % 0.8 % (0.0-1.0); EOSINOPHILS # (AUTO) 0.1 (0.0-0.4); EOSINOPHILS % 1.3 % (0.0-6.0); HEMATOCRIT 33.7 % (34.2-44.1); HEMOGLOBIN 10.8 g/dL (12.0-16.0); LYMPHOCYTES # (AUTO) 1.9 (1.0-3.2); LYMPHOCYTES % 35.8 % (18.0-39.1); MEAN CORPUSCULAR HEMOGLOBIN 34.3 pg (28-32); MONOCYTES # (AUTO) 0.5 (0.2-0.8); MONOCYTES % 10.2 % (4.4-11.3); NEUTROPHILS # (AUTO) 2.7 (2.1-6.9); NEUTROPHILS % 51.3 % (38.7-80.0); PLATELET COUNT 334 x10e3/uL (140-360); RED BLOOD COUNT 3.15 x10e6/uL (3.6-5.1); RED CELL DISTRIBUTION WIDTH 17.5 % (11.7-14.4)
[2019-07-12 09:05] VITALS: BP 100/59
--- NOTE | 2019-07-12 14:19 | Operative Report ---
DATE OF PROCEDURE: 07/12/2019 SURGEON: Niko Moreno MD PROCEDURES: EGD with brushings and biopsies. ADDITIONAL REFERRING PHYSICIAN: Dr. Selvin Park MD. INDICATION FOR PROCEDURE: Severe odynophagia, poor p.o. intake, weight loss. MEDICATIONS: The patient was done under MAC, please see anesthesiologist's note. PROCEDURE IN DETAIL: With the patient in left lateral decubitus position, a flexible fiberoptic Olympus gastroscope was introduced into the esophagus under direct visualization without any difficulty. A large at times a circumferential esophageal ulcer was noted. It extended approximately 8 cm proximally from the GE junction. There was no active bleeding or stigmata of recent hemorrhage. Biopsies and brushings were obtained. The scope was then advanced with ease into the stomach traversing a small hiatal hernia. Mucosa overlying the antrum and the body revealed some diffuse erythema and [id number] edema, and biopsies were obtained. A healing approximately 1 cm prepyloric ulcer was noted and biopsies were obtained. The scope was then advanced all the way to the second portion of the duodenum. The mucosa overlying the proximal second portion and duodenal bulb grossly appeared to be within normal limits. The scope was then withdrawn back into the stomach and retroflexed, and mucosa overlying the fundus and the cardia appeared to be within normal limits. The scope was then straightened out. The stomach was decompressed. The scope was subsequently withdrawn. The patient tolerated the procedure well. IMPRESSION: 1. Large at times a circumferential esophageal ulcer extending approximately 8 cm proximally from the GE junction. Brushings and biopsies obtained. 2. Small hiatal hernia. 3. Gastritis, biopsied. 4. Healing gastric ulcer. Pyloric area without active bleeding or stigmata of recent hemorrhage. Biopsies obtained. PLAN: Follow up histology. Followup cytology. Initiate Dexilant 60 mg 1 p.o. before meals b.i.d. If the patient continues with poor p.o. intake and with no improvement in her odynophagia, she might need to be admitted and IV PPI therapy initiated. Niko Moreno MD [facility] [place]/MODL /[id number] cc: MD Karma Alvarado MD
== END | disposition home or self-care (01) ==
LOC: OR 06:21
PROVIDERS: ATTEND Internal Medicine Gastroenterology
DX: K22.10 Ulcer of esophagus without bleeding (principal); K29.70 Gastritis, unspecified, without bleeding; K25.9 Gastric ulcer, unspecified as acute or chronic, without hemorrhage or perforation; K21.9 Gastro-esophageal reflux disease without esophagitis; K44.9 Diaphragmatic hernia without obstruction or gangrene; R63.4 Abnormal weight loss; Z21 Asymptomatic human immunodeficiency virus [HIV] infection status; B19.20 Unspecified viral hepatitis C without hepatic coma; R00.0 Tachycardia, unspecified; Z88.0 Allergy status to penicillin; Z88.8 Allergy status to other drugs, medicaments and biological substances
CPT/HCPCS: 36415; 43239; 85025; J1610; J2250; J2405; J2704; J3010; 43235

== ENCOUNTER 2019-07-24 12:35 | Inpatient (IN) | payer BC ==
[~2019-07-24] VITALS: Ht 157.5 cm; Wt 43.5 kg
[~2019-07-24 12:35] MED LIST changes: -DONNATAL/LIDOCAINE/MAALOX 30 ML SUSP PO ONE; -FENTANYL CITRATE/PF 100MCG/2 ML INJ ONE; -GLUCAGON FOR INJ 1 MG VIAL ONE; -MIDAZOLAM HCL 2 MG/2 ML VIAL ONE; -ONDANSETRON HCL INJ 2MG/ML 2ML 2 MG/ML VIAL ONE; -PROPOFOL IV EMULSION 10 MG/ML 50 ML VIAL ONE
[2019-07-24] MEDS ORDERED: PANTOPRAZOLE 40 MG 10ML VIAL IV STA (12:59)
[2019-07-24] MEDS ORDERED: SODIUM CHLORIDE 0.9% 1000ML 1,000 ML IV STA ×2 (12:59)
[2019-07-24] MEDS ORDERED: ONDANSETRON HCL INJ 2MG/ML 2ML 2 MG/ML VIAL IV STA (12:59)
[2019-07-24] MEDS ORDERED: MORPHINE SULFATE 2 MG/ML SYR 1ML IV STA (12:59)
[2019-07-24] MEDS ORDERED: ASPIRIN 81 MG CHEW TAB PO ONE (13:00)
[2019-07-24 14:04] LABS: BILIRUBIN,URINE NEGATIVE (NEGATIVE); CLARITY,URINE CLEAR (CLEAR); COLOR,URINE YELLOW (YELLOW); KETONES,URINE NEGATIVE (NEGATIVE); LEUKOCYTE ESTERASE ,URINE NEGATIVE (NEGATIVE); NITRITE,URINE NEGATIVE (NEGATIVE); PROTEIN,URINE DIPSTICK TRACE (NEGATIVE); URINE UROBILINOGEN 0.2 mg/dL (0.2 - 1)
--- NOTE | 2019-07-24 14:09 | Diagnostic Imaging Report ---
Examination: Single AP view of the chest. COMPARISON: 06/04/2019 INDICATION: Weakness, weight loss DISCUSSION: Spinal stimulator device projects over the mid thoracic vertebral column, unchanged. The lungs are well-inflated. No focal airspace consolidation, pleural effusion, or pneumothorax. Cardiomediastinal contour and pulmonary vasculature are otherwise within normal limits. No acute osseous abnormality. Spinal fusion hardware is partially visualized on the low margin of the image. IMPRESSION: No acute cardiopulmonary abnormality. Signed by: Dr. Eusebio Escobar M.D. on 07/24/2019 2:05 PM
[2019-07-24 14:25] LABS: BACTERIA,URINE MODERATE /HPF; EPITHELIAL CELLS,URINE MODERATE /LPF; HYALINE CASTS 0-1 (0-1); RBC,URINE 0-5 /HPF (0-5)
[2019-07-24 14:26] LABS: BASOPHILS % 0.6 % (0.0-1.0); EOSINOPHILS # (AUTO) 0.1 (0.0-0.4); EOSINOPHILS % 2.1 % (0.0-6.0); HEMATOCRIT 33.1 % (34.2-44.1); HEMOGLOBIN 10.7 g/dL (12.0-16.0); LYMPHOCYTES # (AUTO) 2.8 (1.0-3.2); LYMPHOCYTES % 44.5 % (18.0-39.1); MEAN CORPUSCULAR HEMOGLOBIN 34.6 pg (28-32); MEAN CORPUSCULAR HGB CONC 32.3 g/dL (31-35); MEAN CORPUSCULAR VOLUME 107.1 fL (81-99); MONOCYTES # (AUTO) 0.5 (0.2-0.8); MONOCYTES % 8.3 % (4.4-11.3); NEUTROPHILS # (AUTO) 2.8 (2.1-6.9); PLATELET COUNT 405 x10e3/uL (140-360); RED BLOOD COUNT 3.09 x10e6/uL (3.6-5.1); RED CELL DISTRIBUTION WIDTH 16.2 % (11.7-14.4)
[2019-07-24 14:26] LABS: MUCUS,URINE FEW (RARE)
[2019-07-24] MEDS: SODIUM CHLORIDE 0.9% 1000ML 1,000 ML IV SCH ×2 (14:30→21:26)
[2019-07-24 14:36] LABS: INR 0.94; PROTHROMBIN TIME 13.1 seconds (11.9-14.5)
[2019-07-24 14:37] LABS: PARTIAL THROMBOPLASTIN TIME 43.2 seconds (23.8-35.5)
[2019-07-24 14:46] LABS: ALBUMIN 2.7 g/dL (3.5-5.0); ALBUMIN/GLOBULIN RATIO 0.7 (0.8-2.0); ALKALINE PHOSPHATASE 130 IU/L (40-150); ANION GAP 12.8 mmol/L (8-16); BLOOD UREA NITROGEN 12 mg/dL (7-26); BUN/CREATININE RATIO 11 (6-25); CALCIUM 8.9 mg/dL (8.4-10.2); CARBON DIOXIDE 20 mmol/L (22-29); CHLORIDE 105 mmol/L (98-107); CREATINE KINASE 14 IU/L (29-168); CREATININE, SERUM 1.14 mg/dL (0.57-1.11); EST GLOMERULAR FILTRATION RATE 49 ML/MIN (60-); GLUCOSE 128 mg/dL (74-118); LIPASE 27 U/L (8-78); MAGNESIUM 1.8 MG/DL (1.3-2.1); SODIUM 135 mmol/L (136-145)
[2019-07-24 14:47] LABS: ALANINE AMINOTRANSFERASE < 6 IU/L (0-55)
[2019-07-24 14:48] LABS: POTASSIUM 2.8 mmol/L (3.5-5.1)
[2019-07-24] MEDS ORDERED: POTASSIUM CHLORIDE 20MEQ/100ML 100 ML IV ONE (15:00)
[2019-07-24 15:06] LABS: THYROID STIMULATING HORMONE 1.938 uIU/mL (0.350-4.940)
[2019-07-24] MEDS ORDERED: POTASSIUM CHLORIDE 20 MEQ TAB CR PO ONE (16:11)
--- NOTE | 2019-07-24 16:22 | Diagnostic Imaging Report ---
EXAMINATION: CT of the abdomen and pelvis with contrast. TECHNIQUE: Spiral CT images of the abdomen and pelvis were performed from the lung bases to the lesser trochanters after the intravenous administration of 100 cc of Isovue-370 and the oral administration of water. Coronal and sagittal reformatted images were obtained. COMPARISON: None. CLINICAL HISTORY:Abdominal pain, patient reports history of gastric ulcers. DISCUSSION: ABDOMEN/PELVIS: LOWER THORAX:Esophageal wall thickening with mucosal enhancement. Lung bases are unremarkable. HEPATOBILIARY: No focal hepatic lesions. No intra-or extrahepatic biliary ductal dilation. The gallbladder is normal. SPLEEN: No splenomegaly. PANCREAS: No focal masses or ductal dilatation. ADRENALS: No adrenal nodules. KIDNEYS/URETERS: 4 mm nonobstructing calculus in the lower pole of the left kidney. 3 millimeter nonobstructing calculus in the interpolar left kidney. 4 mm nonobstructing calculus in the upper pole of the right kidney. No hydronephrosis, though there is isolated dilatation of the upper pole calyces of the left kidney with overlying cortical atrophy. PELVIC ORGANS/BLADDER: Evaluation of the pelvic organs is limited secondary to streak artifact from left hip prosthesis. PERITONEUM/RETROPERITONEUM: No ascites or pneumoperitoneum. LYMPH NODES: No intra-abdominal, retroperitoneal, pelvic or inguinal lymphadenopathy. VESSELS: Abdominal aorta, major branch vessels, and iliac arterial systems are well-visualized and patent mild atherosclerotic calcification. Portal vein, splenic vein, and central superior mesenteric vein are patent. GI TRACT: The large bowel shows no distention or wall thickening. Gas and fecal material are noted throughout. The appendix is normal. The stomach is collapsed with prominent rugal folds. No small bowel dilatation to suggest obstruction. BONES AND SOFT TISSUE: Healed fracture deformities of the bilateral superior and inferior pubic rami. Status post total left hip replacement with intact surgical hardware to the extent visualized. Spinal stimulator device body rests in the subcutaneous fat of the left gluteal region. Leads terminate within the spinal canal cranial to the superior margin of the scan field. Surgical hardware related to posterior fusion and disc replacement at the lower lumbar spine. No focal soft tissue abnormalities. IMPRESSION: Concentric wall thickening of the partially visualized esophagus is nonspecific though may be seen in the setting of esophagitis. Consider direct visualization with upper endoscopy, which would also allow visualization of the stomach in this patient with reported history of peptic ulcer disease. No evidence of perforation. Bilateral nonobstructing renal calculi. Isolated calyceal dilatation in the upper pole of the right kidney without obstructing calculus may relate to chronic infundibular stenosis given presence of cortical parenchymal thinning. Atherosclerotic vascular disease. Postsurgical changes of the lumbar spine and left hip. Signed by: Dr. Eusebio Escobar M.D. on 07/24/2019 4:18 PM
[2019-07-24] MEDS: ONDANSETRON HCL INJ 2MG/ML 2ML 2 MG/ML VIAL IV PRN ×2 (18:30→22:30)
[2019-07-24] MEDS: MORPHINE SULFATE 2 MG/ML SYR 1ML IV PRN ×2 (18:30→22:30)
[2019-07-24 20:49] VITALS: BP 124/78
[2019-07-24 21:19] VITALS: BP 124/78
[2019-07-24 21:24] VITALS: BP 124/78
[2019-07-24] MEDS ORDERED: IOPAMIDOL 370 MG/ML 200 ML INFUS..BTL INJ ONE (22:24)
[2019-07-24] MEDS ORDERED: SODIUM CHLORIDE 0.9% 50ML 50 ML ONE (22:24)
[2019-07-24 23:52] VITALS: BP 102/67
[2019-07-25] MEDS ORDERED: PANTOPRAZOLE 40 MG 10ML VIAL IV STA (01:09)
[2019-07-25] MEDS: PANTOPRAZOL 40MG/SOD CHL 0.9% 50 ML IV SCH ×5 (01:34→22:00)
[2019-07-25] MEDS: ONDANSETRON HCL INJ 2MG/ML 2ML 2 MG/ML VIAL IV PRN ×6 (02:32→23:55)
[2019-07-25] MEDS: MORPHINE SULFATE 2 MG/ML SYR 1ML IV PRN ×4 (02:32→14:37)
[2019-07-25 04:20] VITALS: BP 100/69
[2019-07-25 05:34] LABS: BASOPHILS % 0.5 % (0.0-1.0); EOSINOPHILS # (AUTO) 0.2 (0.0-0.4); EOSINOPHILS % 3.3 % (0.0-6.0); HEMATOCRIT 31.8 % (34.2-44.1); LYMPHOCYTES # (AUTO) 2.8 (1.0-3.2); LYMPHOCYTES % 50.9 % (18.0-39.1); MEAN CORPUSCULAR HEMOGLOBIN 34.7 pg (28-32); MEAN CORPUSCULAR HGB CONC 31.4 g/dL (31-35); MEAN CORPUSCULAR VOLUME 110.4 fL (81-99); MONOCYTES # (AUTO) 0.5 (0.2-0.8); MONOCYTES % 9.8 % (4.4-11.3); NEUTROPHILS # (AUTO) 1.9 (2.1-6.9); NEUTROPHILS % 35.3 % (38.7-80.0); PLATELET COUNT 341 x10e3/uL (140-360); RED BLOOD COUNT 2.88 x10e6/uL (3.6-5.1); RED CELL DISTRIBUTION WIDTH 16.1 % (11.7-14.4)
[2019-07-25 06:06] LABS: ALBUMIN 2.1 g/dL (3.5-5.0); ALBUMIN/GLOBULIN RATIO 0.7 (0.8-2.0); ALKALINE PHOSPHATASE 105 IU/L (40-150); BLOOD UREA NITROGEN 8 mg/dL (7-26); BUN/CREATININE RATIO 9 (6-25); CALCIUM 7.7 mg/dL (8.4-10.2); CARBON DIOXIDE 21 mmol/L (22-29); CHLORIDE 111 mmol/L (98-107); CREATININE, SERUM 0.88 mg/dL (0.57-1.11); EST GLOMERULAR FILTRATION RATE > 60 ML/MIN (60-); GLUCOSE 90 mg/dL (74-118); LIPASE 21 U/L (8-78); SODIUM 137 mmol/L (136-145)
[2019-07-25 06:07] LABS: ALANINE AMINOTRANSFERASE < 6 IU/L (0-55)
[2019-07-25 06:41] LABS: FERRITIN 280.35 ng/mL (4.63-204.00)
[2019-07-25] MEDS: SUCRALFATE 1 GM TAB PO SCH ×4 (07:53→21:22)
[2019-07-25 08:47] VITALS: BP 118/82
[2019-07-25] MEDS ORDERED: PANTOPRAZOLE 40 MG 10ML VIAL IV SCH (09:00)
[2019-07-25] MEDS: SODIUM CHLORIDE 0.9% 1000ML 1,000 ML IV SCH ×2 (11:00→19:45)
[2019-07-25 12:00] VITALS: BP 112/76
[2019-07-25] MEDS ORDERED: HYDROCODONE/APAP 10MG-325MG TAB PO PRN (14:45)
[2019-07-25] MEDS ORDERED: LORAZEPAM INJ 2 MG/ML VIAL IM PRN (14:45)
[2019-07-25] MEDS ORDERED: HYDROXYZINE HCL 25 MG TAB PO PRN (14:45)
[2019-07-25 15:53] VITALS: BP 126/80
[2019-07-25] MEDS: LUBIPROSTONE 24 MCG CAP PO SCH (16:30)
--- NOTE | 2019-07-25 18:54 | NUR ---
right ej infiltrated . removed pressure dressing applied and taped called er for assistance of iv start
--- NOTE | 2019-07-25 19:10 | NUR ---
Report taken from morning Rn.no iv access right now.Club Car Attendant started new iv to left EJ#[id number].patent.
[2019-07-25 19:25] VITALS: BP 129/82
[2019-07-25] MEDS: MORPHINE SULFATE INJ 4 MG/ML INJ 1ML IV PRN ×2 (19:44→23:55)
[2019-07-25 20:42] VITALS: BP 129/82
[2019-07-25] MEDS: QUETIAPINE FUMARATE 100 MG TAB PO SCH (21:22)
--- NOTE | 2019-07-25 23:42 | Consultation ---
DATE OF CONSULTATION: REASON FOR CONSULTATION: 1. HIV AIDS recommendation antibiotic. 2. Esophagitis. HISTORY OF PRESENT ILLNESS: This patient who is a 58-year-old white female, very pleasant and unfortunate multiple complicated medical history. She has a history of kidney stones, HIV, hepatitis C. At one point, she was at renal failure on dialysis for a few weeks several years ago, multiple back surgeries, multiple lithotripsies, comes in with difficulty with swallowing. The patient has severe pain in the midepigastric area. She is well known to Dr. Niko Moreno. She tells me she had an EGD done a week ago, but she does know what report she has been having problem swallowing recently with pain, so she called Dr. Moreno who told her to come back to the emergency room to be admitted. The patient who is currently lying in bed, complaining of epigastric pain. The patient who was here back in May and then in June. She does have underlying history of chronic kidney disease, gastric ulcer disease. She also have hip fracture with open reduction, internal fixation on the left, right hydronephrosis. On July 12, she had an EGD which showed large esophageal ulcer about 8 cm, several biopsies obtained. The pathology showed squamous mucosa with acute on chronic inflammation, basal cell dysplasia. Negative for fungal. REVIEW OF SYSTEMS: Now she says she has been losing weight because she is not eating. She said she has no fever, no chills, no nausea, no vomiting, no diarrhea otherwise. She is currently on hydrocodone, Atarax, morphine. She is also telling me she is on Atripla. LABORATORY DATA: She has a white count 6.27, hemoglobin 10.7, platelets 405 the diff was noted normal. Sodium 135, potassium 2.8, on admission, creatinine 1.14 on admission came down to 2.88, albumin of 2.1. PHYSICAL EXAMINATION: GENERAL: She is currently alert, oriented, does not seem to be in acute distress. VITAL SIGNS: Stable, currently afebrile. HEENT: Normocephalic, not icteric. NECK: Supple. CHEST: Clear bilateral. HEART: S1, S2. No S3, S4, or murmur. ABDOMEN: Soft, bowel sounds present. No tenderness. EXTREMITIES: No edema. SKIN: There is no rash. IMPRESSION: 1. Esophagitis, severe. We will discuss with Dr. Moreno. From history of HIV, we will get a CD4 cell count to see where she is. She seems to be compliant. 2. HIV. Continue all her home medication in terms of esophagitis. We will discuss with Dr. Moreno to rule out a CMV EBV versus other. Apparently, there is no evidence of fungal infection. Discussed with the patient at length. We will follow. MD CAMERON Shipley/MODL /[id number]
--- NOTE | 2019-07-25 23:58 | History and Physical ---
HISTORY OF PRESENT ILLNESS: The patient is a 58-year-old female with past medical history positive for AIDS and chronic pain syndrome, came here to the hospital complaining of severe epigastric pain with nausea and vomiting. She was found to have hypokalemia, possible esophagitis. The patient was admitted to the hospital. REVIEW OF SYSTEMS: CARDIOVASCULAR: No chest pain or palpitation. RESPIRATORY: No shortness of breath. No cough. GASTROINTESTINAL: She has epigastric pain, which is quite severe along with nausea and vomiting before she came. No diarrhea. No blood in the stool. No black stools. No rectal bleeding. No hematemesis. GENITOURINARY: No frequency or dysuria. ALLERGIES: LISTED IN THE CHART. SHE IS ALLERGIC TO MEDICINE, IBUPROFEN. SOCIAL HISTORY: She smokes. She does not drink. PAST MEDICAL HISTORY: Mainly positive for AIDS, chronic pain syndrome, and also kidney stones. PHYSICAL EXAMINATION: HEART: Showed regular rhythm. Normal S1, S2 sound. LUNGS: Clear bilaterally. ABDOMEN: Soft. Epigastric tenderness. No distention. No visceromegaly. EXTREMITIES: Showed no evidence of cyanosis or hematoma. VITAL SIGNS: Blood pressure 112/76, temperature 38.3, heart rate 97 per minute, respiratory rate 18 per minute, and oxygen saturation 100%. LABORATORY DATA: On the blood work, we have a CBC; white blood cell count 5.50, hemoglobin 10.0, hematocrit 31.8, and platelet count 341,000. On the BMP; sodium 137, potassium 4.0, chloride 111, CO2 21, BUN 8, creatinine 0.88, glucose 90, calcium 7.7. Iron 35, TIBC 151, transferrin 108, ferritin 280. AST 9, ALT 6, alkaline phosphatase 105, creatine kinase 14, CK-MB 1.80, and troponin 0.021. Total protein 5.1, albumin 2.1, globulin 3.0, and lipase 21. TSH 1.938, vitamin . Urinalysis shows white blood cells and bacteria. CT of the abdomen was done, which showed concentric wall thickening of esophagitis. Consider repeat visualization with upper endoscopy, which will also allow visualization of the stomach in a patient, who reported history of peptic ulcer disease. No evidence of perforation. 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 Chest x-ray showed no acute cardiopulmonary abnormality. IMPRESSION: 1. Upper abdominal pain. 2. Esophagitis. 3. Hypokalemia. 4. . 5. Chronic pain syndrome. 6. Narcotic-induced constipation. PLAN OF TREATMENT: Continue normal saline at 125 mL an hour. Protonix drip. Continue with Carafate 1 g before meals. Continue [place] 10/325 mg tab q.4 hours as needed for pain. Atarax 25 mg twice a day as needed for itching. Continue Amitiza 24 mcg p.o. twice a day. She is taking morphine 2 mg, which we are going to increase to 3 mg IV q.4 hours as needed for pain. She is taking Seroquel 200 mg at bedtime. I am going to also increase the morphine 30 IV every 4 hours as needed for severe pain and . We are going to also order physical and occupational therapy. Dr. Niko Moreno has been consulted from the Gastroenterology point of view. MD RALPH Alvarado/TANA /[id number]
[2019-07-26] VITALS (8 sets, daily range): BP systolic 109–139; BP diastolic 66–80
[2019-07-26] MEDS: HYOSCYAMINE 0.125 MG TAB SL SCH ×6 (02:05→21:55)
--- NOTE | 2019-07-26 02:06 | NUR ---
IS IN THE UNIT.RECEIVED NEW ORDERS.STABLE CONDITION.
[2019-07-26] MEDS: PANTOPRAZOL 40MG/SOD CHL 0.9% 50 ML IV SCH ×4 (03:01→17:56)
[2019-07-26] MEDS: ONDANSETRON HCL INJ 2MG/ML 2ML 2 MG/ML VIAL IV PRN ×5 (04:45→21:55)
[2019-07-26] MEDS: MORPHINE SULFATE INJ 4 MG/ML INJ 1ML IV PRN ×5 (04:45→21:55)
[2019-07-26] MEDS: LUBIPROSTONE 24 MCG CAP PO SCH ×2 (05:02→17:53)
[2019-07-26] MEDS: SODIUM CHLORIDE 0.9% 1000ML 1,000 ML IV SCH (06:23)
--- NOTE | 2019-07-26 07:00 | NUR ---
Bed side shift report given to the oncoming Rn.stable condition.
[2019-07-26] MEDS: SUCRALFATE 1 GM TAB PO SCH ×4 (09:43→21:10)
--- NOTE | 2019-07-26 17:03 | NUR ---
Nutrition Intervention Note RD Recommendation(s) for Physician: -Ensure Clear daily -Continue current diet order The patient meets criteria for unspecified SEVERE protein-calorie malnutrition Plan of Care: RD following, monitoring for tolerance and adequacy Nutrition reason for involvement: MST RD Assessment (07/26/19) Pt is a 58 year old female admitted with abdominal pain and anorexia. Pts diet was advanced to a GI soft diet from a liquid diet today. Per documentation, pt consumed 15-25% of liquid meal yesterday. Pt reports she is tolerating PO at this time. Prior to admission, pt reported she was eating < 50% of meals for 8 weeks and had lost weight. Pt mentioned she used to weigh 104 lbs 8 weeks ago. Pt currently has a wt of 96 lbs in chart. If accurate, this would be an 8% wt loss in 8 weeks severe wt loss. Offered pt Ensure Enlive, but pt was interested in trying Ensure clear instead. Principal Problems/Diagnoses: abdominal pain and anorexia PMH: AIDS, chronic pain syndrome, kidney stones I/O: 2260/10 GI: flat, soft, nontender abdomen Skin: no pressure ulcers Labs: (07/26/19) Iron 35, Ca 7.7 Meds: (07/26/19) zofran, pantoprazole, carafate, Ht: 62 inches Wt: 96 lbs BMI: 17.6 kg/m2 IBW: 110 lbs Malnutrition Evaluation (07/26/19) The patient meets criteria for unspecified SEVERE protein-calorie malnutrition. Energy intake: <50% of estimated energy requirements for >1 month Weight loss: 8% weight loss in 8 weeks Fat loss: Moderate tricep region Muscle loss: Mild/moderate squaring of shoulders Supporting Evidence: Fluid accumulation: No edema per MD note Functional Status: unable to evaluate Nutrition Prescription (Diet Order): GI Soft Diet Estimated Nutritional Needs: 8318-6981 calories/day (30-35 kcal/kg CBW) 65-87 g protein/day (1.5-2 g pro/kg CBW) Diet Adequacy: Not meeting calorie needs, Not meeting protein needs Tolerance: Tolerating PO Diet Education Needs Assessment: RD is available for diet education as needed Nutrition Care Level: high Nutrition Diagnosis: Severe protein-kcal malnutrition related to chronic illness as evidenced by pt meeting < 75% of energy needs for > 1 month, 8% wt loss in 8 weeks, and muscle/fat depletion. Goal: Patient will meet 75-100% of estimated needs by follow up Progress: N/A Interventions: -fiber - modified diet, Commercial beverage Monitoring/Evaluation: -Total energy intake, Total protein intake, Modified diet, Liquid supplement, Weight change Signed: Ashley Lee RD, LD
--- NOTE | 2019-07-26 18:18 | Progress Note ---
DATE: Internal Medicine Progress Note SUBJECTIVE: The patient is feeling a lot better now that she is on the Protonix drip. PHYSICAL EXAMINATION: VITAL SIGNS: Blood pressure 114/66, temperature 36.8, heart rate 102 per minute, respiratory rate 20 per minute, and oxygen saturation 100%. HEART: Showed regular rhythm. Normal S1 and S2 sound. LUNGS: Clear bilaterally. ABDOMEN: Soft. Minimal tenderness in the periumbilical area. LABORATORY DATA: On the BMP; sodium 137, potassium 4.0, chloride 111, CO2 of 21, BUN 8, creatinine 0.89, and glucose 90. On the CBC; white blood count 5.50, hemoglobin 10.0, hematocrit 31.8, and platelet count 341,000. PT 13.1, INR 0.94, and PTT 43.2. AST 9, ALT 6, total bilirubin 0.1, and alkaline phosphatase 105. FINAL IMPRESSION: 1. Severe esophagitis, possible gastritis. 2. Postprandial abdominal pain. 3. Hypokalemia, which is resolved. 4. Chronic pain syndrome. 5. Adult immunodeficiency disorder. PLAN OF TREATMENT: Continue Protonix drip. IV fluids will be discontinued since she is able to tolerate a diet. Continue Zofran 4 mg IV every 4 hours as needed, Carafate 1 g before meals, Seroquel 200 mg at bedtime, [place] one tablet every 4 hours as needed for moderate pain, morphine 3 mg IV every 4 hours for more severe pain, hyoscyamine 0.25 mg every 4 hours as needed, Amitiza 24 mcg p.o. twice a day for narcotic induced constipation, and Lorazepam 1.5 mg daily as needed anxiety. Dr. Shelby will be covering for me for a weekend. The patient is progressing well. Tentative discharge weekend. MD RALPH Alvarado/TANA /[id number]
[2019-07-26] MEDS: QUETIAPINE FUMARATE 100 MG TAB PO SCH (21:10)
--- NOTE | 2019-07-26 23:35 | NUR ---
DR. Haydee PETE DOING ROUNDS. NEW ORDER RECEIVED FOR MIRALAX DAILY.
[2019-07-27] VITALS: BP 105/68
[2019-07-27] MEDS: PANTOPRAZOL 40MG/SOD CHL 0.9% 50 ML IV SCH ×4 (00:08→13:02)
[2019-07-27] MEDS: HYOSCYAMINE 0.125 MG TAB SL SCH ×4 (01:51→13:02)
[2019-07-27] MEDS: MORPHINE SULFATE INJ 4 MG/ML INJ 1ML IV PRN ×4 (01:56→14:06)
[2019-07-27] MEDS: ONDANSETRON HCL INJ 2MG/ML 2ML 2 MG/ML VIAL IV PRN ×3 (01:56→14:06)
[2019-07-27 05:35] VITALS: BP 105/65
[2019-07-27] MEDS: LUBIPROSTONE 24 MCG CAP PO SCH (05:58)
[2019-07-27] MEDS ORDERED: INFLUENZA VIRUS VAC SPLIT INJ 0.5 ML SYR IM SCH (07:52)
[2019-07-27] MEDS ORDERED: PNEUMOCOCCAL VACCINE POLYVALENT 23 MCG/0.5 ML VIAL IM SCH (07:52)
[2019-07-27 08:39] VITALS: BP 104/62
[2019-07-27 08:52] VITALS: BP 104/62
[2019-07-27] MEDS ORDERED: POLYETHYLENE GLYCOL 3350 17 GM PACK PO SCH (09:00)
[2019-07-27] MEDS: SUCRALFATE 1 GM TAB PO SCH ×2 (09:26→13:02)
[2019-07-27 09:50] VITALS: BP 104/62
[2019-07-27 12:21] VITALS: BP 114/70
--- NOTE | 2019-07-27 15:21 | Discharge Summary ---
ADMITTING DIAGNOSES: 1. Acute esophagitis. 2. Hypokalemia. 3. Opiate induced constipation. 4. Urinary tract infection. 5. Acute renal insufficiency. 6. Human immunodeficiency virus infection. DISCHARGE DIAGNOSES: 1. Bisphosphonate induced (alendronate) esophagitis. 2. Hypokalemia, resolved. 3. Urinary tract infection. 4. Opiate induced constipation, resolving. 5. Human immunodeficiency virus infection. 6. Acute renal insufficiency, resolved. 7. Anemia secondary to chronic disease/iron deficiency. HOSPITAL COURSE: This is a 58-year-old white woman initially admitted to [facility] with diagnosis of upper abdominal pain, likely secondary to esophagitis. She was also found to be hypokalemic on admission. Moreover, she was diagnosed with opiate induced constipation during this hospitalization. She does suffer from chronic pain syndrome. She is also HIV positive, but she is on highly active anti-retroviral therapy. During this hospitalization, she was seen by a hydroelectric plant electrician, namely, Dr. Niko Moreno, who recommended proton pump inhibitor therapy. The patient has a history of hepatitis C infection, but was previously treated with interferon and states her viral load for hepatitis C is undetectable. The patient was also diagnosed with urinary tract infection during the hospitalization. On admission, the patient's BUN and creatinine was 12 and 1.14 respectively. She also had potassium 2.8 on admission. The patient's BUN and creatinine improved with intravenous fluids. CONDITION ON DISCHARGE: Stable distant. During this hospitalization, she was seen by the Infectious Disease specialist because of her HIV infection. DISCHARGE MEDICATIONS: 1. Keflex 250 t.i.d. for 5 days for patient's urinary tract infection. 2. Triumeq once daily for HIV infection. 3. Vitamin D3 2000 units daily. 4. [place] 10/325 one pill every 6 hours as needed for pain. 5. Lorazepam 2 mg daily as needed for anxiety. 6. Amitiza 24 mcg twice a day. 7. Pantoprazole 40 mg daily. 8. Folic acid 1 mg daily. 9. Seroquel 200 mg at bedtime. 10. Vitamin B12 1000 mcg intramuscular monthly. 11. MiraLAX 17 g daily. FOLLOWUP INSTRUCTIONS: The patient was instructed to follow up with Dr. Park, her new primary care physician within two weeks. The patient was instructed to stop alendronate, namely her bisphosphonate because this medication could be contributing to her upper abdominal pain/esophagitis. MD JERRI Hernandez/TANA /[id number] cc: MD Nani Alvarado MD MTDD
== END 2019-07-27 15:10 | disposition home or self-care (01) | DRG 391 ==
LOC: ER 12:35 → ERHOLD 16:11 → MED/SURG 20:55
PROVIDERS: ADMIT Internal Medicine; ATTEND Internal Medicine
DX: K20.8 Other esophagitis (principal); E43 Unspecified severe protein-calorie malnutrition; B20 Human immunodeficiency virus [HIV] disease; N17.9 Acute kidney failure, unspecified; N39.0 Urinary tract infection, site not specified; Z68.1 Body mass index [BMI] 19.9 or less, adult; E87.6 Hypokalemia; K59.03 Drug induced constipation; T40.2X5A Adverse effect of other opioids, initial encounter; D63.8 Anemia in other chronic diseases classified elsewhere; D50.9 Iron deficiency anemia, unspecified; T45.8X5A Adverse effect of other primarily systemic and hematological agents, initial encounter; G89.4 Chronic pain syndrome; B19.20 Unspecified viral hepatitis C without hepatic coma
CPT/HCPCS: 36415; 71045; 74177; 80053; 81001; 82550; 82553; 82607; 82728; 83540; 83690; 83735; 83880; 84443; 84466; 84484; 85025; 85045; 85610; 85730; 86361; 86644; 86645; 86663; 86664; 86665; 86850; 86900; 90732; 93005; 99284; J2270; J2405; J3480; J7030; Q9967